=== PATIENT | male | born 1940 | race Caucasian/White ===

== ENCOUNTER 2019-06-13 15:42 | Inpatient (IN) | payer OTHER ==
[~2019-06-13] VITALS: Ht 175.3 cm; Wt 104.0 kg
[~2019-06-13 15:42] MED LIST: CARB25TA3 PO; FURO1TAB31 PO; GABA100C9 PO; POTA1TAB61 PO; PRAM0.252 PO; TAMS0.4C36 PO
[2019-06-13] MEDS ORDERED: FUROSEMIDE 40 MG/4 ML VIAL IV ONE (16:00)
[2019-06-13 16:43] LABS: Eosinophils # (auto) 0 10 ^3/uL (0-0.8); Hemoglobin 12.3 g/dL (13.5-17.5); Lymphocytes # (auto) 0.9 10 ^3/uL (0.4-5.4); Lymphocytes % (auto) 6.5 % (10.0-50.0); Mean Corpuscular Hemoglobin 25.1 pg (28.0-32.0); Mean Corpuscular Hgb Conc. 31.6 g/dL (32.0-36.0); Monocytes # (auto) 0.4 10 ^3/uL (0-1.3)
[2019-06-13 16:45] LABS: Basophils # (auto) 0 10 ^3/uL (0-0.2); Eosinophils % (auto) 0.3 % (0.0-7.0); Hematocrit 38.9 % (41.0-53.0); Mean Corpuscular Volume 79.5 fL (80.0-100.0); Monocytes % (auto) 3.4 % (0.0-12.0); Neutrophils # (auto) 11.7 10 ^3/uL (1.6-8.6); Neutrophils % (auto) 89.8 % (37.0-80.0); Platelet Count (auto) 214 10^3/uL (140-450); Red Cell Distribution Width 16.7 % (11.8-14.3)
[2019-06-13 16:53] LABS: Anion Gap 5 (5-15); BUN/Creatinine Ratio 30.2; Blood Urea Nitrogen 32 mg/dL (7-18); Calcium 8.7 mg/dL (8.5-10.1); Carbon Dioxide 32 mmol/L (21-32); Chloride 101 mmol/L (98-107); GFR African American 86 mL/min; GFR Non-African American 71 mL/min; Glucose 191 mg/dL (74-106); Magnesium 2.1 mg/dL (1.6-2.6); Sodium 138 mmol/L (136-145)
[2019-06-13 16:59] LABS: Alanine Aminotransferase 20 U/L (16-61); Alkaline Phosphatase 103 U/L (45-117); Aspartate Aminotransferase 22 U/L (15-37); Bilirubin, Total 0.5 mg/dL (0.2-1.0); Total Protein 7.2 g/dL (6.4-8.2)
[2019-06-13 17:13] LABS: Urine WBC None Seen /hpf (0 - 3)
[2019-06-13 17:43] LABS: Urine Bacteria FEW /hpf (None Seen); Urine Blood Negative /uL (Negative); Urine Specific Gravity 1.009 (1.001-1.035)
[2019-06-13] MEDS ORDERED: levoFLOXacin 500MG 100 ML IV ONE (18:30)
[2019-06-13] MEDS ORDERED: hydrALAZINE HCL 20 MG/ML VL IV PRN (20:00)
[2019-06-13] MEDS ORDERED: MORPHINE SULF INJ 2 MG/ML SYRINGE 1ML IV PRN (20:00)
[2019-06-13] MEDS ORDERED: NITROGLYCERIN 0.4 MG SL TAB SL PRN (20:00)
[2019-06-13 22:00] VITALS: BP 132/64
--- NOTE | 2019-06-13 22:00 | NUR ---
Telemetry admit from ER ESTIVEN GEIGER admitted to Telemetry unit after SBAR received. Patient oriented to DARIANA CARNES, RN primary RN, unit, room, bed, and unit policies regarding patient care and visiting hours. Patient now on continuous telemetry monitoring, tele box # 31 and telemetry reading on arrival to unit is Sinus tachycardia 100bpm. Patient placed on bedside oxygen, weighed by bedscale and encouraged to call if they need something. All questions and concerns addressed, patient verbalized understanding.
--- NOTE | 2019-06-13 22:40 | NUR ---
wound photos/biopsy patient has a bandaid on his right eyebrow/ forehead per patient he had biopsy done. wound care photos taken for reference
[2019-06-13] MEDS: CARVEDILOL 3.125 MG TAB PO SCH (22:48)
[2019-06-13] MEDS: GABAPENTIN 100 MG CAP PO SCH (22:48)
[2019-06-13] MEDS: CARBIDOPA W LEVODOPA 25/100mg TABLET PO SCH (22:48)
--- NOTE | 2019-06-13 23:38 | NUR ---
patient heart rate went above 100 bpm. patient is Being assisted to the restroom. patient had a BM.
[2019-06-13] MEDS ORDERED: CARV3.1240 PO (23:51)
[2019-06-13] MEDS ORDERED: ROPI2TAB4 PO (23:55)
[2019-06-13] MEDS ORDERED: TRAM50TA2 PO (23:55)
[2019-06-13] MEDS ORDERED: METO2.5T11 PO (23:55)
--- NOTE | 2019-06-14 01:10 | NUR ---
patient assisted to use the restroom.
[2019-06-14 04:51] VITALS: BP 124/69
[2019-06-14] MEDS: FUROSEMIDE 100 MG/10ML VIAL IV SCH ×2 (05:40→18:19)
[2019-06-14] MEDS: GABAPENTIN 100 MG CAP PO SCH ×3 (05:40→21:39)
[2019-06-14] MEDS: SPIRONOLACTONE 25 MG TAB PO SCH ×2 (05:41→18:19)
[2019-06-14 05:59] LABS: Albumin 3.1 g/dL (3.4-5.0); Calcium 8.8 mg/dL (8.5-10.1); INR 1.11 (0.9-1.15); Partial Thromboplastin Time 28.2 sec (23.64-32.05); Potassium 3.5 mmol/L (3.5-5.1)
[2019-06-14 06:02] LABS: BUN/Creatinine Ratio 26.3; Bilirubin, Total 0.7 mg/dL (0.2-1.0)
--- NOTE | 2019-06-14 07:35 | NUR ---
REPORT GIVEN TO DAYSHIFT RN PATIENT DENIES SOB DISTRESS OR PAIN
--- NOTE | 2019-06-14 08:00 | NUR ---
ASSUMED CARE. PLEASANT, VERBALLY APPROPRIATE. STATES HE DID NOT GET MUCH SLEEP LAST NIGHT. REPORTS HE IS ONLY ABLE TO SLEEP SITTING UP. TOLERATES BRP. DEMONSTRATES STEADY ON HIS FEET.
[2019-06-14] MEDS ORDERED: cefTRIAXone 1GM/50ML D5W 50 ML IV SCH (09:00)
--- NOTE | 2019-06-14 09:00 | NUR ---
BEDSIDE ECHO COMPLETED.
[2019-06-14 09:25] VITALS: BP 114/64
--- NOTE | 2019-06-14 09:30 | NUR ---
REPORTS HAVING DIARRHEA. BSC PROVIDED.
[2019-06-14] MEDS ORDERED: AZITHROMYCIN 250 MG TAB PO SCH (10:00)
[2019-06-14] MEDS: ENOXAPARIN SOD 40 MG/0.4 ML SYRINGE SC SCH (10:35)
[2019-06-14] MEDS: CARVEDILOL 3.125 MG TAB PO SCH ×2 (10:35→21:40)
[2019-06-14] MEDS: CARBIDOPA W LEVODOPA 25/100mg TABLET PO SCH ×2 (10:36→21:39)
[2019-06-14 12:40] VITALS: BP 129/62
[2019-06-14 17:04] VITALS: BP 127/54
[2019-06-14] MEDS: PRAMIPEXOLE DIHYDROCHLORIDE MO 0.25 MG TAB PO SCH (18:20)
[2019-06-14] MEDS: TAMSULOSIN HYDROCHLORIDE 0.4 MG CAP PO SCH (18:20)
--- NOTE | 2019-06-14 19:40 | NUR ---
Opening Shift Note Assumed care of patient, awake and alert. No S/S of distress/SOB or pain. Instructed on POC and to call for assist PRN, will continue to monitor for changes Q1hr and PRN. bed in low position call light within reach.
--- NOTE | 2019-06-14 19:49 | NUR ---
C/O LOOSE JESSICA HAS RESOLVED. HOSPITALIST ROUNDED. INSTRUCTS TO LEAVE OFF O2 WITH PLANS FOR DC IN THE AM. TOLERATES EACH MEAL WELL. RESPIRATIONS EVEN UNLABORED. REPORTS RESPIRATIONS NOW EASY AND FEELING MUCH BETTER.
[2019-06-14 22:00] VITALS: BP 129/68
[2019-06-15] MEDS: GABAPENTIN 100 MG CAP PO SCH ×2 (05:31→16:00)
[2019-06-15] MEDS: SPIRONOLACTONE 25 MG TAB PO SCH ×2 (05:31→18:53)
[2019-06-15] MEDS: FUROSEMIDE 100 MG/10ML VIAL IV SCH (05:31)
[2019-06-15 05:41] VITALS: BP 133/63
[2019-06-15 05:59] LABS: Basophils # (auto) 0.1 10 ^3/uL (0-0.2); Basophils % (auto) 0.5 % (0.0-2.0); Eosinophils # (auto) 0 10 ^3/uL (0-0.8); Eosinophils % (auto) 0.4 % (0.0-7.0); Hematocrit 36.9 % (41.0-53.0); Hemoglobin 11.8 g/dL (13.5-17.5); Lymphocytes # (auto) 1.1 10 ^3/uL (0.4-5.4); Lymphocytes % (auto) 9.3 % (10.0-50.0); Mean Corpuscular Hemoglobin 25.5 pg (28.0-32.0); Mean Corpuscular Volume 79.6 fL (80.0-100.0); Monocytes # (auto) 0.6 10 ^3/uL (0-1.3); Monocytes % (auto) 4.8 % (0.0-12.0); Neutrophils # (auto) 10.4 10 ^3/uL (1.6-8.6); Platelet Count (auto) 203 10^3/uL (140-450); Red Blood Cells 4.63 10^6/uL (4.5-5.90); Red Cell Distribution Width 16.8 % (11.8-14.3); White Blood Cell 12.3 10^3/uL (4.4-10.8)
[2019-06-15 06:24] LABS: BUN/Creatinine Ratio 28.7; Calcium 8.6 mg/dL (8.5-10.1); Potassium 3.2 mmol/L (3.5-5.1)
--- NOTE | 2019-06-15 06:50 | NUR ---
patient rounds patient is in bed sleeping bilateral chest rise and fall rr 17. shows no signs of sob distress or pain. bed in low position and call light within reach
--- NOTE | 2019-06-15 07:31 | NUR ---
REPORT GIVEN TO DAYSHIFT RN. PATIENT DENIES SOB DISTRESS OR PAIN
[2019-06-15 08:59] VITALS: BP 118/46
[2019-06-15] MEDS: ENOXAPARIN SOD 40 MG/0.4 ML SYRINGE SC SCH (10:30)
[2019-06-15] MEDS: CARBIDOPA W LEVODOPA 25/100mg TABLET PO SCH (10:30)
[2019-06-15] MEDS: CARVEDILOL 3.125 MG TAB PO SCH (10:30)
[2019-06-15] MEDS ORDERED: levoFLOXacin 500 MG TAB PO SCH (11:30)
[2019-06-15] MEDS: POTASSIUM CHL 20MEQ/100ML 100 ML IV SCH ×2 (11:30→18:52)
[2019-06-15] MEDS ORDERED: POTASSIUM CHL 20 Meq TABLET PO ONE (11:30)
--- NOTE | 2019-06-15 12:00 | NUR ---
D/C Planning Regarding social service for possible home oxygen. Informed OMAR Sutherland under patient vital sign it does not look like he is on oxygen. Per OMAR Sutherland she will test patient and will follow up with me.
[2019-06-15 13:00] VITALS: BP 119/56
--- NOTE | 2019-06-15 13:00 | NUR ---
DR. EMILY TERRELL. STATES OK TO REPLACE POTASSIUM WITH PO FOR VALUE OF 3.2. HE STATES OK WITH DC HOME ON LASIX AND POTASSIUM PO. TO F/U WITH HIM OUT PT.
--- NOTE | 2019-06-15 13:31 | NUR ---
TAKEN IN 100% OF EACH MEAL AND TOLERATES. DEMONSTRATES ABILITY TO AMBULATE 60 FEET WITHOUT SOB AND O2 SAT REMAINS 92% TO 94% WHILE DOING SO. HE HAS SHAVEN HIS FACE THIS AM AND IS BRUSHING HIS TEETH NOW. ASKING WHEN YOU WILL BE DISCHARGED.
--- NOTE | 2019-06-15 13:50 | NUR ---
Assessment Patient is a 79-year-old male who is alert and oriented. Prior to admission patient live home with his Angela and functioned independently. Patient informed me he can care for her own ADLs. Patient informed me he has a walker with seat and cane. Per patient he will return home to his prior living arrangements post discharge and his son will transport him home. Advised patient there is a Social Service consult for home oxygen. Informed patient I will have Nurse check if he needs oxygen. Informed patient he has the right to participate in all discharge planning. Patient verbalized understanding and agrees to discharge plan. Advised Nurse order is not completed and to please check if patient qualifies for home O2. Per OMAR Magallon patient is ambulating 60 feet without SOB and O2 SAT REMAINS 92% TO 94% while doing so therefore, he is not in need of home O2. Addendum: 06/15/19 at 1351 by MARILUZ ETIENNE Amended: Links added.
[2019-06-15 13:51] VITALS: BP 118/46
[2019-06-15] MEDS ORDERED: SPIR25TA88 PO (16:39)
[2019-06-15] MEDS ORDERED: LEVO-28 PO (16:39)
[2019-06-15 16:44] VITALS: BP 122/68
[2019-06-15] MEDS ORDERED: POTASSIUM CHL 20MEQ/100ML 100 ML IV ONE (18:22)
[2019-06-15] MEDS: TAMSULOSIN HYDROCHLORIDE 0.4 MG CAP PO SCH (18:53)
[2019-06-15] MEDS: PRAMIPEXOLE DIHYDROCHLORIDE MO 0.25 MG TAB PO SCH (18:54)
--- NOTE | 2019-06-15 19:25 | NUR ---
Opening Shift Note Assumed care of patient, awake and alert x4. No S/S of distress/SOB or pain. Instructed on POC and to call for assist PRN. All questions and concerns answered. Patient is going to call his son for a ride to be picked up. Will continue to monitor.
--- NOTE | 2019-06-15 20:20 | NUR ---
Discharge wound photo taken of the right forehead for reference.
--- NOTE | 2019-06-15 20:30 | NUR ---
Discharge instructions given as ordered. Encourage to follow up with PMD and Dr. Serrano as instructed. All questions and concerns addressed. Patient verbalized understanding. Medication reconciliation form completed and copy given to patient. IV removed with catheter intact, pressure dressing applied. Telemetry unit returned to ICU. Patient taken to vehicle via wheelchair with all personal belongings, accompanied by staff. No distress noted at time of departure.
[2019-06-16] MEDS ORDERED: POTASSIUM CHL 20 Meq TABLET PO SCH (10:00)
[2019-06-16] MEDS ORDERED: FUROSEMIDE 20 MG TAB PO SCH (10:00)
== END 2019-06-15 20:30 | disposition home or self-care (01) | DRG 291 ==
LOC: ER 15:42 → TELE 15:43 → TELE-CENTR 22:00
PROVIDERS: ADMIT Nurse Practitioner Acute Care; ATTEND Internal Medicine
DX: I13.0 Hypertensive heart and chronic kidney disease with heart failure and stage 1 through stage 4 chronic kidney disease, or unspecified chronic kidney disease (principal); J18.9 Pneumonia, unspecified organism; I50.43 Acute on chronic combined systolic (congestive) and diastolic (congestive) heart failure; E44.0 Moderate protein-calorie malnutrition; N17.9 Acute kidney failure, unspecified; I45.2 Bifascicular block; R06.03 Acute respiratory distress; D72.829 Elevated white blood cell count, unspecified; R00.2 Palpitations; G20 Parkinson's disease; G25.81 Restless legs syndrome; N18.3 Chronic kidney disease, stage 3 (moderate); E87.6 Hypokalemia; N40.0 Benign prostatic hyperplasia without lower urinary tract symptoms; I08.1 Rheumatic disorders of both mitral and tricuspid valves; I44.0 Atrioventricular block, first degree; I25.10 Atherosclerotic heart disease of native coronary artery without angina pectoris; Z79.899 Other long term (current) drug therapy; Z87.442 Personal history of urinary calculi; Z68.33 Body mass index [BMI] 33.0-33.9, adult
CPT/HCPCS: 36415; 71045; 80048; 80053; 81001; 82962; 83036; 83605; 83735; 83880; 84484; 85025; 85379; 85610; 85730; 87040; 87804; 93005; 93306; G0378; J0696; J1956; J3480

== ENCOUNTER 2019-06-19 17:08 | Inpatient (IN) | payer OTHER, SELFPAY ==
[~2019-06-19] VITALS: Ht 154.9 cm; Wt 103.0 kg
[~2019-06-19 17:08] MED LIST changes: +CARV3.1240 PO; +LEVO-28 PO; +METO2.5T11 PO; +ROPI2TAB4 PO; +SPIR25TA88 PO; +TRAM50TA2 PO
[2019-06-19 18:07] LABS: Basophils # (auto) 0.1 10 ^3/uL (0-0.2); Eosinophils # (auto) 0 10 ^3/uL (0-0.8); Eosinophils % (auto) 0.2 % (0.0-7.0); Hemoglobin 13.5 g/dL (13.5-17.5); Monocytes # (auto) 0.4 10 ^3/uL (0-1.3); Neutrophils # (auto) 13.9 10 ^3/uL (1.6-8.6)
[2019-06-19 18:09] LABS: Basophils % (auto) 0.7 % (0.0-2.0); Hematocrit 41.8 % (41.0-53.0); Lymphocytes # (auto) 0.9 10 ^3/uL (0.4-5.4); Lymphocytes % (auto) 5.6 % (10.0-50.0); Mean Corpuscular Hemoglobin 25.8 pg (28.0-32.0); Mean Corpuscular Hgb Conc. 32.4 g/dL (32.0-36.0); Mean Corpuscular Volume 79.5 fL (80.0-100.0); Monocytes % (auto) 2.5 % (0.0-12.0); Nucleated Red Blood Cells % 0.1 %; Platelet Count (auto) 222 10^3/uL (140-450); Red Blood Cells 5.26 10^6/uL (4.5-5.90); White Blood Cell 15.3 10^3/uL (4.4-10.8)
[2019-06-19 18:21] LABS: Alanine Aminotransferase 15 U/L (16-61); Albumin 3.7 g/dL (3.4-5.0); Anion Gap 6 (5-15); Aspartate Aminotransferase 40 U/L (15-37); BUN/Creatinine Ratio 28.6; Blood Urea Nitrogen 55 mg/dL (7-18); Carbon Dioxide 32 mmol/L (21-32); Chloride 95 mmol/L (98-107); GFR African American 44 mL/min; GFR Non-African American 36 mL/min; Glucose 174 mg/dL (74-106); Potassium 3.3 mmol/L (3.5-5.1); Sodium 133 mmol/L (136-145)
[2019-06-19 18:24] LABS: INR 1.13 (0.9-1.15); Partial Thromboplastin Time 28.3 sec (23.64-32.05)
[2019-06-19 18:28] LABS: Alkaline Phosphatase 116 U/L (45-117); Bilirubin, Total 0.9 mg/dL (0.2-1.0)
[2019-06-19 21:45] LABS: Urine Bacteria NONE SEEN /hpf (None Seen); Urine Blood Negative /uL (Negative); Urine Hyaline Cast MANY /lpf (0 - 2); Urine Specific Gravity 1.011 (1.001-1.035); Urine WBC 1 /hpf (0 - 3)
[2019-06-20] MEDS ORDERED: AZITHROMYCIN 500MG/ 250ML 250 ML IV ONE
[2019-06-20] MEDS ORDERED: TEMAZEPAM 15 MG CAP PO PRN
[2019-06-20] MEDS ORDERED: ACETAMINOPHEN 325 MG TAB PO PRN
[2019-06-20] MEDS ORDERED: HYDROcodone-ACET 5/325MG TAB PO PRN
[2019-06-20] MEDS ORDERED: SODIUM CHLORIDE 0.9% 500 ML IV ONE
[2019-06-20] MEDS ORDERED: ONDANSETRON HCL 4 MG/2 ML VIAL IV PRN
[2019-06-20] MEDS ORDERED: POTASSIUM CHL 20 Meq TABLET PO ONE ×2 (00:15→18:00)
[2019-06-20 02:50] VITALS: BP 144/76
--- NOTE | 2019-06-20 04:19 | NUR ---
MS admit from ER ESTIVEN GEIGER admitted to tele/MS after SBAR received. Patient oriented to Noemy Mahmood RN primary RN, unit, room, bed, and unit policies regarding patient care and visiting hours. Patient weighed by bedscale and encouraged to call if they need something. All questions and concerns addressed, patient verbalized understanding. Bed is in lowest locked position with bed rails up x2 and call light is within reach of the patient.
[2019-06-20 05:00] VITALS: BP 133/66
[2019-06-20] MEDS ORDERED: ALBUTEROL SULF HFA 90MCG INH 200DOSE IN SCH ×2 (06:00)
[2019-06-20] MEDS ORDERED: FUROSEMIDE 20 MG TAB PO SCH (06:00)
[2019-06-20] MEDS: CARBIDOPA W LEVODOPA 25/100mg TABLET PO SCH ×3 (06:23→22:45)
[2019-06-20] MEDS: GABAPENTIN 100 MG CAP PO SCH ×3 (06:25→22:45)
--- NOTE | 2019-06-20 07:00 | NUR ---
PAGED RT: PAGED RT FOR INHALER TREATMENT AND NEED TO HAVE PATIENT ON CONTINUOUS PULSE OX.
--- NOTE | 2019-06-20 07:20 | NUR ---
Respiratory note: PT ASSESSED FOR MDI TX. HR 76, RR 18, POX 98% ON 2L NC, BS ARE CLR/DIM. PT STATES NO SOB OR DISTRESS AT THIS TIME. PT WAS NOTIFY TO HAVE RN PAGE RT FOR NEEDED TX.
--- NOTE | 2019-06-20 07:31 | NUR ---
SPOKE WITH RT: RESPIRATORY THERAPIST MADE AWARE THAT PATIENT NEEDS CONTINUOUS PULSE OX AND ALBUTEROL INHALER MED. STATED THAT SHE WILL GET TO IT FOR THE PATIENT. NOTIFIED DAY SHIFT RN.
[2019-06-20 08:00] VITALS: BP_SYST 133; BP_SYST 139; BP_DIAS 57; BP_DIAS 66
--- NOTE | 2019-06-20 08:00 | NUR ---
OPENING SHIFT NOTE ASSUMED CARE OF PATIENT AWAKE AND ALERT. NO S/S OF DISTRESS NOTED OR COMPLAINTS OF PAIN. PATIENT CONNECTED TO CONTINUOUS PULSE OX SATTING AT 96% ON 2L NC. PATIENT STATES HE FEELS MUCH BETTER AND NO LONGER SOB WITH O2 THERAPY. PATIENT UPDATED ON POC FOR THE DAY AND ALL QUESTIONS ANSWERED. BED IS IN LOWEST, LOCKED POSITION WITH SIDE RAILS UP X2 AND CALL LIGHT WITHIN REACH. WILL CONTINUE TO MONITOR Q1H AND PRN.
[2019-06-20] MEDS ORDERED: ERGOCALCIFEROL 50,000 UNIT(1.25MG) CAP PO SCH (09:00)
[2019-06-20] MEDS: CARVEDILOL 3.125 MG TAB PO SCH ×2 (09:48→22:45)
[2019-06-20] MEDS: ASCORBIC ACID 500 MG TAB PO SCH (09:49)
[2019-06-20] MEDS ORDERED: ZINC SULFATE 220mg CAP or TAB PO SCH (10:00)
[2019-06-20 13:53] LABS: Basophils # (auto) 0 10 ^3/uL (0-0.2); Basophils % (auto) 0.1 % (0.0-2.0); Eosinophils # (auto) 0 10 ^3/uL (0-0.8); Eosinophils % (auto) 0.1 % (0.0-7.0); Hemoglobin 13.1 g/dL (13.5-17.5); Lymphocytes # (auto) 0.9 10 ^3/uL (0.4-5.4); Lymphocytes % (auto) 5.8 % (10.0-50.0); Mean Corpuscular Volume 78.9 fL (80.0-100.0); Monocytes # (auto) 0.6 10 ^3/uL (0-1.3)
[2019-06-20 13:57] LABS: Hematocrit 39.5 % (41.0-53.0); Mean Corpuscular Hemoglobin 26.1 pg (28.0-32.0); Mean Corpuscular Hgb Conc. 33.1 g/dL (32.0-36.0); Monocytes % (auto) 3.9 % (0.0-12.0); Neutrophils # (auto) 14.3 10 ^3/uL (1.6-8.6); Neutrophils % (auto) 90.1 % (37.0-80.0); Platelet Count (auto) 229 10^3/uL (140-450); Red Blood Cells 5.01 10^6/uL (4.5-5.90); Red Cell Distribution Width 16.4 % (11.8-14.3); White Blood Cell 15.9 10^3/uL (4.4-10.8)
--- NOTE | 2019-06-20 14:00 | NUR ---
AT BEDSIDE DR DIAZ AT BEDSIDE TO EVALUATE PATIENT.
[2019-06-20 14:07] LABS: BUN/Creatinine Ratio 33.1; Calcium 9.1 mg/dL (8.5-10.1); Potassium 3.2 mmol/L (3.5-5.1)
--- NOTE | 2019-06-20 14:30 | NUR ---
LOOSE STOOLS PATIENT HAS BEEN HAVING MULTIPLE BOUTS OF FOUL SMELLING MUCOID BOWEL MOVEMENTS. HE IS ALSO COMPLAINING OF CRAMPING. CDIFF SAMPLE COLLECTED AND SENT TO LAB PER PROTOCOL.
--- NOTE | 2019-06-20 15:07 | NUR ---
PAGED DR Yair BRYANT PAGED REGARDING POTASSIUM LEVEL AND CDIFF SAMPLE. AWAITING CALL BACK.
--- NOTE | 2019-06-20 15:21 | NUR ---
RECEIVED CALL BACK RECEIVED CALL FROM Bela BRYANT. NEW ORDERS RECEIVED, WILL CARRY OUT AND CONTINUE CARE.
--- NOTE | 2019-06-20 16:30 | NUR ---
AT BEDSIDE DR BROWN AT BEDSIDE CONSULTING WITH PATIENT.
--- NOTE | 2019-06-20 17:10 | NUR ---
PHARMACY RECEIVED CALL FROM PHARMACY STATING THEY ARE PUTTING A HOLD ON ORDERED ZITHROMAX D/T PROLONGED QT INTERVAL. THEY RECOMMEND MD ORDERS DOXYCYCLINE OR ZOSYN. WILL ENDORSE MESSAGE.
[2019-06-20] MEDS ORDERED: TAMSULOSIN HYDROCHLORIDE 0.4 MG CAP PO SCH (18:00)
[2019-06-20 18:21] VITALS: BP 116/80
[2019-06-21] MEDS ORDERED: AZITHROMYCIN 500MG/ 250ML 250 ML IV SCH
[2019-06-21] MEDS: GABAPENTIN 100 MG CAP PO SCH ×2 (05:30→15:46)
[2019-06-21] MEDS: CARBIDOPA W LEVODOPA 25/100mg TABLET PO SCH ×2 (05:30→15:47)
[2019-06-21 09:00] VITALS: BP 128/67
[2019-06-21] MEDS: CARVEDILOL 3.125 MG TAB PO SCH (10:56)
[2019-06-21] MEDS: ASCORBIC ACID 500 MG TAB PO SCH (11:13)
[2019-06-21] MEDS ORDERED: DOXYCYCLINE 100 MG TAB/CAP PO SCH (12:30)
--- NOTE | 2019-06-21 14:33 | NUR ---
Dr. Serrano patient cleared for discharge per Dr. Serrano
[2019-06-21 15:07] LABS: Basophils # (auto) 0 10 ^3/uL (0-0.2); Lymphocytes # (auto) 0.9 10 ^3/uL (0.4-5.4); Monocytes # (auto) 0.4 10 ^3/uL (0-1.3)
[2019-06-21 15:09] LABS: Basophils % (auto) 0.2 % (0.0-2.0); Eosinophils # (auto) 0.1 10 ^3/uL (0-0.8); Eosinophils % (auto) 0.4 % (0.0-7.0); Hematocrit 42.8 % (41.0-53.0); Hemoglobin 13.4 g/dL (13.5-17.5); Lymphocytes % (auto) 7.2 % (10.0-50.0); Mean Corpuscular Hgb Conc. 31.4 g/dL (32.0-36.0); Mean Corpuscular Volume 79.6 fL (80.0-100.0); Monocytes % (auto) 3.3 % (0.0-12.0); Neutrophils # (auto) 11.5 10 ^3/uL (1.6-8.6); Neutrophils % (auto) 88.9 % (37.0-80.0); Nucleated Red Blood Cells % 0.1 %; Platelet Count (auto) 191 10^3/uL (140-450); Red Blood Cells 5.38 10^6/uL (4.5-5.90); Red Cell Distribution Width 16.9 % (11.8-14.3); White Blood Cell 12.9 10^3/uL (4.4-10.8)
[2019-06-21 15:25] LABS: BUN/Creatinine Ratio 38.5; Calcium 8.9 mg/dL (8.5-10.1); Potassium 3.1 mmol/L (3.5-5.1)
[2019-06-21] MEDS ORDERED: POTASSIUM EFFERVESENT TAB 25 MEQ PO ONE (15:30)
--- NOTE | 2019-06-21 15:42 | NUR ---
Dr. Mendoza cleared patient for discharge.
[2019-06-21] MEDS ORDERED: ALBUAER3 IN (15:51)
[2019-06-21] MEDS ORDERED: IPRIH IN (15:51)
[2019-06-21] MEDS ORDERED: DOXY-346 PO (15:51)
[2019-06-21] MEDS ORDERED: HYDR200T36 PO (15:51)
[2019-06-21 16:36] VITALS: BP 126/67
--- NOTE | 2019-06-21 16:56 | NUR ---
PT EDUCATED ON DISCHARGE INSTRUCTIONS AND ON ISOLATION PRECAUTIONS. PT EDUCATED BY OMAR SOLANO AND DR.T. BRYANT. PT VERBALIZED UNDERSTANDING
--- NOTE | 2019-06-21 17:13 | NUR ---
Discharge instructions given as ordered. Encourage to follow up with PMD as instructed. All questions and concerns addressed. Patient verbalized understanding. Medication reconciliation form completed and copy given to patient. Home medications held in Pharmacy returned to patient, and needed vaccines given. IV removed with catheter intact, pressure dressing applied Telemetry unit returned to ICU. Patient taken to vehicle via wheelchair with all personal belongings, accompanied by staff. No distress noted at time of departure.
--- NOTE | 2019-06-22 13:36 | NUR ---
D/C Planning Per consult home health safety evaluation. Faxed clinical information to [facility]. Per Lynette Mabry they will see patient D/C Planning Per consult for home health safety evaluation. Faxed clinical information to [facility]. Per Lynette Mabry Ph:) they where previously seeing patient and will resume service within 24-48hrs upon d/c day. Notify [facility] Wilkins with [facility].
== END 2019-06-21 19:04 | disposition home or self-care (01) | DRG 189 ==
LOC: ER 17:10 → OVERFLOW 17:11 → EAST 06-20 03:10
PROVIDERS: ADMIT Nurse Practitioner; ATTEND Internal Medicine
DX: J96.01 Acute respiratory failure with hypoxia (principal); N17.0 Acute kidney failure with tubular necrosis; I50.32 Chronic diastolic (congestive) heart failure; J98.11 Atelectasis; J20.9 Acute bronchitis, unspecified; E87.6 Hypokalemia; D72.829 Elevated white blood cell count, unspecified; I11.0 Hypertensive heart disease with heart failure; G20 Parkinson's disease; N40.0 Benign prostatic hyperplasia without lower urinary tract symptoms; E66.01 Morbid (severe) obesity due to excess calories; G62.9 Polyneuropathy, unspecified; Z90.49 Acquired absence of other specified parts of digestive tract; Z90.89 Acquired absence of other organs; Z98.49 Cataract extraction status, unspecified eye; Z83.3 Family history of diabetes mellitus; Z82.49 Family history of ischemic heart disease and other diseases of the circulatory system; Z80.1 Family history of malignant neoplasm of trachea, bronchus and lung; Z81.1 Family history of alcohol abuse and dependence; Z03.818 Encounter for observation for suspected exposure to other biological agents ruled out
CPT/HCPCS: 36415; 71045; 80048; 80053; 81001; 82728; 83735; 83880; 84484; 85025; 85379; 85610; 85652; 85730; 87040; 87070; 87081; 87493; 87804; 87880; 93005; 93970; G0378

== ENCOUNTER 2020-01-06 13:40 | Inpatient (IN) | payer OTHER, SELFPAY ==
[~2020-01-06] VITALS: Ht 190.5 cm; Wt 91.5 kg
[~2020-01-06 13:40] MED LIST changes: +ALBUAER3 IN; +DOXY-346 PO; +HYDR200T36 PO; +IPRIH IN; -LEVO-28 PO; -METO2.5T11 PO
[2020-01-06 14:43] LABS: Albumin 3.4 g/dL (3.4-5.0); Amylase 40 U/L (25-115); Anion Gap 4 (5-15); Blood Urea Nitrogen 29 mg/dL (7-18); Calcium 8.9 mg/dL (8.5-10.1); Carbon Dioxide 37 mmol/L (21-32); Chloride 99 mmol/L (98-107); Glucose 113 mg/dL (74-106); Lipase 183 U/L (73-393); Magnesium 2.5 mg/dL (1.6-2.6); Potassium 3.8 mmol/L (3.5-5.1); Sodium 140 mmol/L (136-145)
[2020-01-06 14:45] LABS: Eosinophils # (auto) 0 10 ^3/uL (0-0.8); Hematocrit 37.7 % (41.0-53.0); Hemoglobin 11.9 g/dL (13.5-17.5); Mean Corpuscular Hgb Conc. 31.4 g/dL (32.0-36.0); Monocytes # (auto) 0.6 10 ^3/uL (0-1.3); Neutrophils # (auto) 14.9 10 ^3/uL (1.6-8.6)
[2020-01-06 14:46] LABS: Basophils # (auto) 0.1 10 ^3/uL (0-0.2); Basophils % (auto) 0.4 % (0.0-2.0); Eosinophils % (auto) 0.1 % (0.0-7.0); Lymphocytes # (auto) 0.8 10 ^3/uL (0.4-5.4); Lymphocytes % (auto) 4.6 % (10.0-50.0); Mean Corpuscular Hemoglobin 25.6 pg (28.0-32.0); Mean Corpuscular Volume 81.4 fL (80.0-100.0); Monocytes % (auto) 3.6 % (0.0-12.0); Neutrophils % (auto) 91.3 % (37.0-80.0); Platelet Count (auto) 199 10^3/uL (140-450); Red Blood Cells 4.64 10^6/uL (4.5-5.90); Red Cell Distribution Width 15.2 % (11.8-14.3); White Blood Cell 16.4 10^3/uL (4.4-10.8)
[2020-01-06 14:50] LABS: Alanine Aminotransferase < 6 U/L (16-61); Alkaline Phosphatase 98 U/L (45-117); Aspartate Aminotransferase 8 U/L (15-37); GFR African American 71 mL/min; GFR Non-African American 59 mL/min; Total Protein 7.2 g/dL (6.4-8.2)
[2020-01-06 15:06] LABS: Urine Bacteria NONE SEEN /hpf (None Seen); Urine Blood Negative /uL (Negative); Urine Hyaline Cast MOD /lpf (0 - 2); Urine Mucus FEW (None Seen); Urine Specific Gravity 1.008 (1.001-1.035); Urine WBC <1 /hpf (0 - 3)
[2020-01-06] MEDS ORDERED: cefTRIAXone 1GM/50ML D5W 50 ML IV ONE (16:30)
[2020-01-06] MEDS ORDERED: metroNIDAZOLE 500MG/100ML 100 ML IV ONE (16:30)
[2020-01-06] MEDS ORDERED: MORPHINE SULF INJ 2 MG/ML SYRINGE 1ML IV PRN ×2 (19:15)
[2020-01-06] MEDS ORDERED: NITROGLYCERIN 0.4 MG SL TAB SL PRN (19:15)
[2020-01-06] MEDS ORDERED: ONDANSETRON HCL 4 MG/2 ML VIAL IV PRN (19:15)
[2020-01-06] MEDS ORDERED: ACETAMINOPHEN 500 MG TAB PO PRN (19:15)
[2020-01-06] MEDS: FUROSEMIDE 40 MG TAB PO SCH (20:36)
[2020-01-06] MEDS ORDERED: CARBIDOPA W LEVODOPA 25/100mg TABLET PO SCH (22:00)
[2020-01-06] MEDS: metroNIDAZOLE 500MG/100ML 100 ML IV SCH (22:00)
[2020-01-06] MEDS ORDERED: [UNRECOGNIZED DRUG - REMARK] OP SCH (22:00)
[2020-01-06] MEDS: CARVEDILOL 3.125 MG TAB PO SCH (23:00)
[2020-01-06] MEDS: GABAPENTIN 100 MG CAP PO SCH (23:00)
[2020-01-06] MEDS ORDERED: ALLO100T PO (23:23)
[2020-01-06 23:41] VITALS: BP 134/62
[2020-01-07 05:00] VITALS: BP 132/65
[2020-01-07] MEDS: metroNIDAZOLE 500MG/100ML 100 ML IV SCH ×3 (05:40→22:57)
[2020-01-07] MEDS: SPIRONOLACTONE 25 MG TAB PO SCH ×2 (06:04→17:28)
[2020-01-07] MEDS: GABAPENTIN 100 MG CAP PO SCH ×3 (06:05→22:57)
[2020-01-07] MEDS: FUROSEMIDE 40 MG TAB PO SCH ×2 (06:05→17:28)
--- NOTE | 2020-01-07 07:30 | NUR ---
Opening Shift Note RECEIVED REPORT FROM NOC RN. Assumed care of patient, awake and alert. PATIENT ON OXYGEN AT 2 LPM VIA NASAL CANNULA WITH no S/S of distress/SOB or pain. BED IN LOWEST, LOCKED POSITION WITH SIDERAILS UP x2 AND CALL LIGHT WITHIN REACH. Instructed on POC and to call for assist PRN, will continue to monitor for changes Q1hr and PRN.
[2020-01-07 08:57] VITALS: BP 114/55
[2020-01-07] MEDS: cefTRIAXone 1GM/50ML D5W 50 ML IV SCH (09:17)
[2020-01-07] MEDS: PANTOPRAZOLE 40 MG/10 ML VIAL INJ IV SCH (10:01)
[2020-01-07] MEDS: CARVEDILOL 3.125 MG TAB PO SCH ×2 (10:01→22:57)
--- NOTE | 2020-01-07 11:47 | NUR ---
DR. SALINAS AT BEDSIDE.
[2020-01-07 12:50] VITALS: BP 121/57
[2020-01-07] MEDS: CARBIDOPA W LEVODOPA 25/250mg TABLET PO SCH ×2 (14:04→22:56)
[2020-01-07 16:35] VITALS: BP 143/67
[2020-01-07] MEDS ORDERED: TAMSULOSIN HYDROCHLORIDE 0.4 MG CAP PO SCH (18:00)
[2020-01-07 22:00] VITALS: BP 137/63
[2020-01-08 05:45] VITALS: BP 122/56
[2020-01-08] MEDS: CARBIDOPA W LEVODOPA 25/250mg TABLET PO SCH ×2 (06:03→14:25)
[2020-01-08] MEDS: metroNIDAZOLE 500MG/100ML 100 ML IV SCH ×2 (06:03→14:25)
[2020-01-08] MEDS: FUROSEMIDE 40 MG TAB PO SCH (06:04)
[2020-01-08] MEDS: SPIRONOLACTONE 25 MG TAB PO SCH (06:04)
[2020-01-08] MEDS: GABAPENTIN 100 MG CAP PO SCH ×2 (06:04→14:25)
[2020-01-08 08:33] LABS: Basophils # (auto) 0 10 ^3/uL (0-0.2); Lymphocytes # (auto) 0.6 10 ^3/uL (0.4-5.4); Mean Corpuscular Hemoglobin 25.9 pg (28.0-32.0); Mean Corpuscular Hgb Conc. 31.8 g/dL (32.0-36.0); Mean Corpuscular Volume 81.4 fL (80.0-100.0); Monocytes # (auto) 0.4 10 ^3/uL (0-1.3)
[2020-01-08 08:35] LABS: Basophils % (auto) 0.3 % (0.0-2.0); Eosinophils # (auto) 0.1 10 ^3/uL (0-0.8); Eosinophils % (auto) 0.6 % (0.0-7.0); Hematocrit 36.5 % (41.0-53.0); Hemoglobin 11.6 g/dL (13.5-17.5); Lymphocytes % (auto) 5.9 % (10.0-50.0); Monocytes % (auto) 3.6 % (0.0-12.0); Neutrophils # (auto) 9.9 10 ^3/uL (1.6-8.6); Neutrophils % (auto) 89.6 % (37.0-80.0); Platelet Count (auto) 185 10^3/uL (140-450); Red Blood Cells 4.48 10^6/uL (4.5-5.90); White Blood Cell 11.1 10^3/uL (4.4-10.8)
[2020-01-08 08:55] LABS: Albumin 3.1 g/dL (3.4-5.0); Anion Gap 5 (5-15); Blood Urea Nitrogen 25 mg/dL (7-18); Calcium 8.9 mg/dL (8.5-10.1); Carbon Dioxide 33 mmol/L (21-32); Chloride 99 mmol/L (98-107); Glucose 126 mg/dL (74-106); Potassium 3.1 mmol/L (3.5-5.1); Sodium 137 mmol/L (136-145)
[2020-01-08 08:59] LABS: Alanine Aminotransferase < 6 U/L (16-61); Alkaline Phosphatase 78 U/L (45-117); Aspartate Aminotransferase 10 U/L (15-37); BUN/Creatinine Ratio 26.3; Bilirubin, Total 0.9 mg/dL (0.2-1.0); GFR African American 98 mL/min; GFR Non-African American 81 mL/min; Total Protein 6.7 g/dL (6.4-8.2)
[2020-01-08 09:00] VITALS: BP 125/48
[2020-01-08] MEDS: cefTRIAXone 1GM/50ML D5W 50 ML IV SCH (09:27)
[2020-01-08] MEDS: PANTOPRAZOLE 40 MG/10 ML VIAL INJ IV SCH (09:27)
[2020-01-08] MEDS: CARVEDILOL 3.125 MG TAB PO SCH (09:28)
[2020-01-08] MEDS ORDERED: GADOTERIDOL 279.3mg/mL 20ml Vial IV ONE (10:07)
[2020-01-08] MEDS ORDERED: LACTULOSE 20Gm/30ML SOLN PO PRN (12:45)
[2020-01-08 13:00] VITALS: BP 131/73
[2020-01-08] MEDS ORDERED: CEPH-37 PO (14:00)
[2020-01-08] MEDS ORDERED: METR500T PO (14:00)
[2020-01-08] MEDS ORDERED: IBUP600T27 PO (14:04)
[2020-01-08] MEDS ORDERED: POTASSIUM CHL 20 Meq TABLET PO ONE (14:45)
[2020-01-08 15:09] VITALS: BP 125/48
--- NOTE | 2020-01-08 17:09 | NUR ---
DISCHARGE INSTRUCTIONS PROVIDED TO PT. PT VERBALIZED UNDERSTANDING FOR PRESCRIPTION ORDERS AND FOLLOW UP APPOINTMENT. EDUCATIONAL MATERIAL PROVIDED, ALL QUESTIONS AND CONCERNS ADDRESSED. IV CATHETER DC CATHETER INTACT NO PHLEBITIS. TELE BOX REMOVED AND RETURNED TO TELE DEPT. PT SAFELY ESCORTED OUT OF UNIT VIA WHEELCHAIR.
== END 2020-01-08 17:00 | disposition home or self-care (01) | DRG 392 ==
LOC: ER 13:40 → TELE 13:41 → TELE-CENTR 22:20 → TELE-EAST 01-07 20:43
PROVIDERS: ADMIT Nurse Practitioner Acute Care; ATTEND Hospitalist
DX: K57.32 Diverticulitis of large intestine without perforation or abscess without bleeding (principal); I50.32 Chronic diastolic (congestive) heart failure; K86.2 Cyst of pancreas; D72.829 Elevated white blood cell count, unspecified; N28.89 Other specified disorders of kidney and ureter; H40.9 Unspecified glaucoma; E78.5 Hyperlipidemia, unspecified; I11.0 Hypertensive heart disease with heart failure; K52.9 Noninfective gastroenteritis and colitis, unspecified; G62.9 Polyneuropathy, unspecified; K57.90 Diverticulosis of intestine, part unspecified, without perforation or abscess without bleeding; Q27.39 Arteriovenous malformation, other site; Z80.1 Family history of malignant neoplasm of trachea, bronchus and lung; Z90.49 Acquired absence of other specified parts of digestive tract; Z80.51 Family history of malignant neoplasm of kidney; Z82.49 Family history of ischemic heart disease and other diseases of the circulatory system; Z83.3 Family history of diabetes mellitus; Z79.891 Long term (current) use of opiate analgesic; Z79.01 Long term (current) use of anticoagulants; Z79.899 Other long term (current) drug therapy
CPT/HCPCS: 36415; 74176; 74183; 76775; 80053; 81001; 82150; 83605; 83690; 83735; 83880; 84484; 85025; 87040; 93306; 96365; 96368; C9113; G0378; J0696; J3490

== ENCOUNTER 2021-02-13 09:14 | Emergency (ER) | payer OTHER ==
[~2021-02-13] VITALS: Ht 190.5 cm; Wt 89.4 kg
[~2021-02-13 09:14] MED LIST changes: +ALLO100T PO; +CARB-80 PO; -CARB25TA3 PO; +CEPH-37 PO; -DOXY-346 PO; +IBUP600T27 PO; +METR500T PO; -ROPI2TAB4 PO; +ROPI2TAB6 PO; +SPIR25TA PO; -SPIR25TA88 PO
[2021-02-13 10:12] VITALS: BP 126/82
[2021-02-13 10:41] LABS: Urine Bacteria NONE SEEN /hpf (None Seen); Urine Blood 3+ /uL (Negative); Urine Specific Gravity 1.012 (1.001-1.035); Urine WBC 15 /hpf (0 - 3); Urine WBC Clumps PRESENT /hpf (None Seen)
[2021-02-13 11:15] LABS: Basophils # (auto) 0.1 10 ^3/uL (0-0.2); Basophils % (auto) 0.5 % (0.0-2.0); Eosinophils # (auto) 0 10 ^3/uL (0-0.8); Lymphocytes # (auto) 0.6 10 ^3/uL (0.4-5.4); Monocytes # (auto) 0.4 10 ^3/uL (0-1.3); Neutrophils # (auto) 10.9 10 ^3/uL (1.6-8.6)
[2021-02-13 11:16] LABS: Potassium 4.7 mmol/L (3.5-5.1)
[2021-02-13 11:17] LABS: Eosinophils % (auto) 0.1 % (0.0-7.0); Hematocrit 33.1 % (41.0-53.0); Hemoglobin 10.5 g/dL (13.5-17.5); Lymphocytes % (auto) 5.3 % (10.0-50.0); Mean Corpuscular Hemoglobin 26.1 pg (28.0-32.0); Mean Corpuscular Hgb Conc. 31.8 g/dL (32.0-36.0); Monocytes % (auto) 3.2 % (0.0-12.0); Neutrophils % (auto) 90.9 % (37.0-80.0); Red Blood Cells 4.03 10^6/uL (4.5-5.90); Red Cell Distribution Width 19.3 % (11.8-14.3); White Blood Cell 11.9 10^3/uL (4.4-10.8)
[2021-02-13 11:22] LABS: Albumin 2.8 g/dL (3.4-5.0); BUN/Creatinine Ratio 25.8; Bilirubin, Total 0.6 mg/dL (0.2-1.0); Calcium 8.6 mg/dL (8.5-10.1); Total Protein 6.2 g/dL (6.4-8.2)
[2021-02-13] MEDS ORDERED: cefTRIAXone 1GM/50ML D5W 50 ML IV ONE (12:15)
[2021-02-13] MEDS ORDERED: NITR-87 PO (12:16)
== END 2021-02-13 14:21 | disposition home or self-care (01) ==
LOC: ER 09:14 → EDBD 09:14 → ER 14:21
DX: N21.0 Calculus in bladder (principal); I11.0 Hypertensive heart disease with heart failure; I50.9 Heart failure, unspecified; Z90.49 Acquired absence of other specified parts of digestive tract
CPT/HCPCS: 36415; 74176; 80053; 81001; 83690; 85025; 93005

== ENCOUNTER 2021-08-17 08:18 | Emergency (ER) | payer OTHER ==
[~2021-08-17] VITALS: Ht 190.5 cm; Wt 80.7 kg
[~2021-08-17 08:18] MED LIST changes: +NITR-87 PO
[2021-08-17 08:24] VITALS: BP 125/49
[2021-08-17 10:32] LABS: Urine Bacteria FEW /hpf (None Seen); Urine Blood 2+ /uL (Negative); Urine WBC 5160 /hpf (0 - 3)
== END 2021-08-17 09:13 | disposition left against medical advice (07) ==
LOC: ER 08:18
DX: N39.0 Urinary tract infection, site not specified (principal); Z53.21 Procedure and treatment not carried out due to patient leaving prior to being seen by health care provider
CPT/HCPCS: 81001

== ENCOUNTER 2021-08-27 05:02 | Emergency (ER) | payer OTHER ==
[~2021-08-27] VITALS: Ht 190.5 cm; Wt 76.2 kg
[2021-08-27 07:29] LABS: Urine Bacteria NONE SEEN /hpf (None Seen); Urine Blood TRACE /uL (Negative); Urine Specific Gravity 1.015 (1.001-1.035); Urine WBC 1359 /hpf (0 - 3); Urine WBC Clumps PRESENT /hpf (None Seen)
[2021-08-27] MEDS ORDERED: TAMSULOSIN HYDROCHLORIDE 0.4 MG CAP PO ONE (07:30)
[2021-08-27] MEDS ORDERED: SODIUM CHLORIDE 0.9% 1,000 ML IVB ONE (07:30)
[2021-08-27 07:49] LABS: Hemoglobin 11.3 g/dL (13.5-17.5)
[2021-08-27 07:51] LABS: Hematocrit 35.3 % (41.0-53.0); Mean Corpuscular Hemoglobin 25.7 pg (28.0-32.0); Mean Corpuscular Volume 80.3 fL (80.0-100.0); Red Cell Distribution Width 16.4 % (11.8-14.3); White Blood Cell 11.7 10^3/uL (4.4-10.8)
[2021-08-27 07:54] LABS: Band Neutrophils % (manual) 0; Basophils % (manual) 0 (0.0-2.0); Myelocytes % 0; Promyelocytes % 0
[2021-08-27 07:55] LABS: Blast Cells 0; Reactive Lymphocytes 0
[2021-08-27 08:10] LABS: Magnesium 2.4 mg/dL (1.6-2.6)
[2021-08-27 08:14] LABS: Albumin 3.6 g/dL (3.4-5.0); Calcium 8.9 mg/dL (8.5-10.1)
[2021-08-27] MEDS ORDERED: cefTRIAXone 1GM/50ML D5W 50 ML IV ONE (08:15)
[2021-08-27 08:17] LABS: BUN/Creatinine Ratio 42.9; Bilirubin, Total 1.1 mg/dL (0.2-1.0)
[2021-08-27 08:29] LABS: Potassium 2.8 mmol/L (3.5-5.1)
[2021-08-27] MEDS ORDERED: POTASSIUM EFFERVESENT TAB 25 MEQ PO ONE (08:45)
[2021-08-27 09:35] LABS: Eosinophils % (manual) 1 (0-7); Lymphocytes % (manual) 5 (10.0-50.0); Metamyelocytes % 1; Monocytes % (manual) 9 (0-12)
[2021-08-27] MEDS ORDERED: LEVO500T31 PO (12:14)
[2021-08-27 13:40] VITALS: BP 118/54
== END 2021-08-27 13:45 | disposition home or self-care (01) ==
LOC: ER 05:02
DX: N40.0 Benign prostatic hyperplasia without lower urinary tract symptoms (principal); N39.0 Urinary tract infection, site not specified; R16.2 Hepatomegaly with splenomegaly, not elsewhere classified; N28.89 Other specified disorders of kidney and ureter; I11.0 Hypertensive heart disease with heart failure; I50.9 Heart failure, unspecified; Z90.49 Acquired absence of other specified parts of digestive tract; Z90.89 Acquired absence of other organs; Z79.899 Other long term (current) drug therapy; Z79.1 Long term (current) use of non-steroidal anti-inflammatories (NSAID)
CPT/HCPCS: 36415; 51702; 71045; 74176; 80053; 81001; 83690; 83735; 84443; 85007; 85027; 87086; 93005; 96365; 99285; J0696; J7030; 87088; 87186

== ENCOUNTER 2022-07-25 11:30 | Inpatient (IN) | payer OTHER ==
[~2022-07-25] VITALS: Ht 190.5 cm; Wt 84.9 kg
[~2022-07-25 11:30] MED LIST changes: +CARB-118 PO; -CARB-80 PO; +GABA-1308 PO; -GABA100C9 PO; +IBUP-1454 PO; -IBUP600T27 PO; +LEVO500T31 PO
[2022-07-25] MEDS ORDERED: FUROSEMIDE 40 MG/4 ML VIAL IV ONE (12:45)
[2022-07-25 15:27] LABS: Basophils # (auto) 0.1 10 ^3/uL (0-0.2); Eosinophils # (auto) 0 10 ^3/uL (0-0.8); Hemoglobin 11.3 g/dL (13.5-17.5); Lymphocytes # (auto) 0.9 10 ^3/uL (0.4-5.4)
[2022-07-25 15:29] LABS: Basophils % (auto) 0.7 % (0.0-2.0); Eosinophils % (auto) 0.3 % (0.0-7.0); Hematocrit 36.3 % (41.0-53.0); Lymphocytes % (auto) 7.9 % (10.0-50.0); Mean Corpuscular Hemoglobin 24.3 pg (28.0-32.0); Mean Corpuscular Hgb Conc. 31.1 g/dL (32.0-36.0); Mean Corpuscular Volume 77.9 fL (80.0-100.0); Monocytes # (auto) 0.5 10 ^3/uL (0-1.3); Monocytes % (auto) 4.3 % (0.0-12.0); Neutrophils # (auto) 9.7 10 ^3/uL (1.6-8.6); Neutrophils % (auto) 86.8 % (37.0-80.0); Red Blood Cells 4.66 10^6/uL (4.5-5.90); Red Cell Distribution Width 16.5 % (11.8-14.3); White Blood Cell 11.2 10^3/uL (4.4-10.8)
[2022-07-25 15:44] LABS: Albumin 3.9 g/dL (3.4-5.0); Calcium 8.7 mg/dL (8.5-10.1); Magnesium 2.4 mg/dL (1.6-2.6); Potassium 3.5 mmol/L (3.5-5.1)
[2022-07-25 15:46] LABS: INR 1.05 (0.9-1.15); Partial Thromboplastin Time 29.2 sec (24.6-33.4)
[2022-07-25 15:47] LABS: Bilirubin, Total 0.7 mg/dL (0.2-1.0); Total Protein 6.9 g/dL (6.4-8.2)
[2022-07-25] MEDS ORDERED: DOCUSATE SOD 100 MG CAP PO PRN (21:45)
[2022-07-25] MEDS ORDERED: HYDROcodone-ACET 5/325MG TAB PO PRN (21:45)
[2022-07-25] MEDS ORDERED: ONDANSETRON HCL 4 MG/2 ML VIAL IV PRN (21:45)
[2022-07-25] MEDS ORDERED: ACETAMINOPHEN 325 MG TAB PO PRN (21:45)
[2022-07-25] MEDS: cefTRIAXone 1GM/50ML D5W 50 ML IV SCH (22:58)
[2022-07-25] MEDS: SODIUM CHLOR 0.9% PF (SALINE LOCK) 10ML VIAL/SYR IV SCH (22:59)
[2022-07-25] MEDS: CARBIDOPA W LEVODOPA CR 25/100mg TABLET PO SCH (23:01)
[2022-07-25] MEDS: CARVEDILOL 3.125 MG TAB PO SCH (23:01)
[2022-07-25] MEDS ORDERED: NITROGLYCERIN 0.4 MG SL TAB SL PRN (23:45)
[2022-07-25] MEDS ORDERED: MORPHINE SULFATE INJ 2 MG/ml SYRG IV PRN (23:45)
[2022-07-26] MEDS: SODIUM CHLOR 0.9% PF (SALINE LOCK) 10ML VIAL/SYR IV SCH ×3 (05:49→22:00)
[2022-07-26 06:29] LABS: Basophils # (auto) 0.1 10 ^3/uL (0-0.2); Basophils % (auto) 0.6 % (0.0-2.0); Eosinophils # (auto) 0.1 10 ^3/uL (0-0.8); Eosinophils % (auto) 0.9 % (0.0-7.0); Hematocrit 32.7 % (41.0-53.0); Hemoglobin 10.3 g/dL (13.5-17.5); Lymphocytes # (auto) 0.9 10 ^3/uL (0.4-5.4); Lymphocytes % (auto) 9.5 % (10.0-50.0); Mean Corpuscular Volume 77.5 fL (80.0-100.0); Monocytes # (auto) 0.6 10 ^3/uL (0-1.3); Monocytes % (auto) 6.1 % (0.0-12.0); Neutrophils # (auto) 7.6 10 ^3/uL (1.6-8.6); Neutrophils % (auto) 82.9 % (37.0-80.0); Red Blood Cells 4.22 10^6/uL (4.5-5.90); White Blood Cell 9.1 10^3/uL (4.4-10.8)
[2022-07-26 06:30] LABS: Mean Corpuscular Hemoglobin 24.5 pg (28.0-32.0); Mean Corpuscular Hgb Conc. 31.6 g/dL (32.0-36.0)
[2022-07-26 06:54] LABS: Potassium 3.2 mmol/L (3.5-5.1)
[2022-07-26 07:00] LABS: Albumin 3.2 g/dL (3.4-5.0); BUN/Creatinine Ratio 33.3 (10.0-20.0); Bilirubin, Total 0.8 mg/dL (0.2-1.0); Calcium 8.5 mg/dL (8.5-10.1); Total Protein 6.2 g/dL (6.4-8.2)
[2022-07-26] MEDS: CARVEDILOL 3.125 MG TAB PO SCH ×2 (10:39→22:33)
[2022-07-26] MEDS: ASPirin 81 mg TAB PO SCH (10:39)
[2022-07-26] MEDS: CARBIDOPA W LEVODOPA CR 25/100mg TABLET PO SCH ×2 (10:40→22:32)
[2022-07-26] MEDS: SPIRONOLACTONE 25 MG TAB PO SCH (10:40)
[2022-07-26] MEDS: FUROSEMIDE 40 MG/4 ML VIAL IV SCH ×3 (10:40→22:00)
[2022-07-26] MEDS: PRAMIPEXOLE DIHYDROCHLORIDE MO 0.25 MG TAB PO SCH (18:41)
[2022-07-26] MEDS: cefTRIAXone 1GM/50ML D5W 50 ML IV SCH (22:33)
[2022-07-26] MEDS ORDERED: POTASSIUM CHL 20 Meq TABLET PO ONE (23:15)
[2022-07-26 23:35] VITALS: BP 138/60
[2022-07-27 05:00] VITALS: BP 113/53
[2022-07-27] MEDS: SODIUM CHLOR 0.9% PF (SALINE LOCK) 10ML VIAL/SYR IV SCH ×2 (06:21→14:20)
[2022-07-27 08:35] VITALS: BP 103/46
[2022-07-27] MEDS: CARVEDILOL 3.125 MG TAB PO SCH (10:00)
[2022-07-27] MEDS: CARBIDOPA W LEVODOPA CR 25/100mg TABLET PO SCH (10:52)
[2022-07-27] MEDS: ASPirin 81 mg TAB PO SCH (10:54)
[2022-07-27] MEDS: FUROSEMIDE 40 MG/4 ML VIAL IV SCH (10:55)
[2022-07-27] MEDS: SPIRONOLACTONE 25 MG TAB PO SCH (11:01)
[2022-07-27 13:00] VITALS: BP 110/50
[2022-07-27 14:31] LABS: BUN/Creatinine Ratio 35.4 (10.0-20.0); Calcium 8.8 mg/dL (8.5-10.1); Potassium 3.7 mmol/L (3.5-5.1)
[2022-07-27 16:35] VITALS: BP 122/56
[2022-07-27] MEDS ORDERED: AUG875T PO (16:39)
[2022-07-27] MEDS: PRAMIPEXOLE DIHYDROCHLORIDE MO 0.25 MG TAB PO SCH (17:27)
[2022-07-27 19:09] VITALS: BP 103/46
== END 2022-07-27 19:50 | disposition home health service (06) | DRG 291 ==
LOC: ER 11:30 → TELE 23:36 → TELE-WESTW 07-26 22:46
PROVIDERS: ADMIT Nurse Practitioner Family; ATTEND Internal Medicine
DX: I11.0 Hypertensive heart disease with heart failure (principal); I50.33 Acute on chronic diastolic (congestive) heart failure; J96.01 Acute respiratory failure with hypoxia; E86.0 Dehydration; G20 Parkinson's disease; D72.829 Elevated white blood cell count, unspecified; R60.0 Localized edema; S81.802A Unspecified open wound, left lower leg, initial encounter; X58.XXXA Exposure to other specified factors, initial encounter; I50.9 Heart failure, unspecified; Z88.8 Allergy status to other drugs, medicaments and biological substances; Z83.3 Family history of diabetes mellitus; Z82.49 Family history of ischemic heart disease and other diseases of the circulatory system; Z79.82 Long term (current) use of aspirin; Z90.49 Acquired absence of other specified parts of digestive tract; Z80.1 Family history of malignant neoplasm of trachea, bronchus and lung; Z80.51 Family history of malignant neoplasm of kidney; Y93.89 Activity, other specified; Y92.89 Other specified places as the place of occurrence of the external cause; Y99.8 Other external cause status
CPT/HCPCS: 36415; 71045; 80048; 80053; 83735; 83880; 84484; 85025; 85610; 85730; 93005; 93306; 96365; 96375; G0378; J0696

== ENCOUNTER 2022-12-04 09:57 | Inpatient (IN) | payer OTHER ==
[~2022-12-04] VITALS: Ht 190.5 cm; Wt 99.3 kg
[2022-12-04] VITALS (9 sets, daily range): BP systolic 114–122; BP diastolic 50–56; PULSE 68–77; RESP 14–23; TEMP 97.8–98.9; O2SAT 92–99
[~2022-12-04 09:57] MED LIST changes: +AUG875T PO
[2022-12-04 10:41] LABS: Basophils # (auto) 0.1 10 ^3/uL (0-0.2); Eosinophils # (auto) 0 10 ^3/uL (0-0.8); Lymphocytes # (auto) 0.6 10 ^3/uL (0.4-5.4); Mean Corpuscular Hemoglobin 24.9 pg (28.0-32.0)
[2022-12-04 10:44] LABS: Basophils % (auto) 0.6 % (0.0-2.0); Eosinophils % (auto) 0.6 % (0.0-7.0); Hematocrit 32.9 % (41.0-53.0); Hemoglobin 10.3 g/dL (13.5-17.5); Lymphocytes % (auto) 7.1 % (10.0-50.0); Mean Corpuscular Hgb Conc. 31.4 g/dL (32.0-36.0); Mean Corpuscular Volume 79.3 fL (80.0-100.0); Monocytes # (auto) 0.4 10 ^3/uL (0-1.3); Monocytes % (auto) 4.1 % (0.0-12.0); Neutrophils # (auto) 7.5 10 ^3/uL (1.6-8.6); Neutrophils % (auto) 87.6 % (37.0-80.0); Nucleated Red Blood Cells % 0.1 %; Red Blood Cells 4.15 10^6/uL (4.5-5.90); Red Cell Distribution Width 16.6 % (11.8-14.3); White Blood Cell 8.5 10^3/uL (4.4-10.8)
[2022-12-04] MEDS ORDERED: ASPirin 81 mg TAB PO ONE (10:45)
[2022-12-04 10:50] LABS: Albumin 3.8 g/dL (3.2-4.8); Alkaline Phosphatase 71 U/L (46-116); Aspartate Aminotransferase < 8 U/L (13-40); BUN/Creatinine Ratio 42.9 (10.0-20.0); Bilirubin, Total 0.8 mg/dL (0.2-1.0); Blood Urea Nitrogen 72 mg/dL (9-23); Calcium 8.9 mg/dL (8.5-10.1); Glucose 139 mg/dL (74-106); Total Protein 5.9 g/dL (5.7-8.2)
[2022-12-04 11:19] LABS: Carbon Dioxide > 40 mmol/L (20-30)
[2022-12-04 11:20] LABS: Alanine Aminotransferase < 9 U/L (7-40)
[2022-12-04 11:34] LABS: Anion Gap 4.99999 (5-15); Chloride 98 mmol/L (98-107); Potassium 3.1 mmol/L (3.5-5.1); Sodium 143 mmol/L (136-145)
[2022-12-04 12:31] LABS: Urine Bacteria NONE SEEN /hpf (None Seen); Urine Blood Negative /uL (Negative); Urine Clarity Clear (Clear); Urine Color Colorless (Yellow); Urine Protein, UAD Negative (Negative); Urine Specific Gravity 1.011 (1.001-1.035); Urine Urobilinogen Normal (Negative); Urine WBC 1 /hpf (0 - 3)
[2022-12-04 13:13] LABS: Base Excess 13.3 mmol/L (-2.0-2.0)
[2022-12-04] MEDS ORDERED: NITROGLYCERIN 0.4 MG SL TAB SL PRN ×2 (14:00→16:00)
[2022-12-04] MEDS ORDERED: DOPamine 1600MCG/ML D5W 250 ML IV SCH (14:00)
[2022-12-04] MEDS ORDERED: BUMETANIDE 2.5mg/10ml (0.25 mg/ml) INJ IV ONE (14:00)
[2022-12-04] MEDS ORDERED: MORPHINE SULFATE INJ 2 MG/ml SYRG IV PRN ×2 (14:00→16:00)
[2022-12-04] MEDS ORDERED: fentaNYL CITRATE 100 MCG/2 ML VL ONE (14:06)
[2022-12-04] MEDS ORDERED: MIDAZOLAM HCL 2MG/2ML 2ml VIAL (1mg/ml) ONE (14:06)
[2022-12-04] MEDS ORDERED: VANCOMYCIN HCL 1000 MG VL ONE (14:06)
[2022-12-04] MEDS ORDERED: VANCOMYCIN 1GM/250ML 250 ML IV ONE (14:06)
[2022-12-04] MEDS ORDERED: LIDOCAINE 2%HCL (LOCAL ANESTH.) INJ 20ML MDV ONE (14:07)
[2022-12-04] MEDS ORDERED: ONDANSETRON HCL 4 MG/2 ML VIAL IV PRN (14:15)
[2022-12-04] MEDS ORDERED: HYDROcodone-ACET 5/325MG TAB PO PRN (14:15)
[2022-12-04 14:30] LABS: INR 1.17 (0.9-1.15); Partial Thromboplastin Time 30.3 SEC (24.5-34.5); Prothrombin Time 12.2 sec (9.3-11.8)
[2022-12-04] MEDS ORDERED: acetaZOLAMIDE SODIUM 500 MG VL IV ONE (14:45)
[2022-12-04] MEDS ORDERED: IODIXANOL 320MG/ML 100ML BTL IV ONE (14:53)
[2022-12-04] MEDS ORDERED: LOPERAMIDE HCL 2 MG CAP/TAB PO PRN (17:45)
[2022-12-04] MEDS ORDERED: POTASSIUM CHL 20 Meq TABLET PO ONE (18:00)
[2022-12-04] MEDS ORDERED: PRAMIPEXOLE DIHYDROCHLORIDE MO 0.25 MG TAB PO SCH ×2 (18:00→22:00)
[2022-12-04] MEDS ORDERED: LATA0.008 EACHEYE (18:04)
[2022-12-04] MEDS ORDERED: BET25T PO (18:06)
[2022-12-04] MEDS ORDERED: FUROSEMIDE 40 MG/4 ML VIAL IV ONE (22:30)
[2022-12-04] MEDS: hydrOXYchloroQUINE SULFATE 200 MG TAB PO SCH (23:11)
[2022-12-05] VITALS (13 sets, daily range): BP systolic 95–117; BP diastolic 43–52; PULSE 63–79; RESP 16–22; TEMP 97.4–98.2; O2SAT 93–99
[2022-12-05] MEDS: TAMSULOSIN HYDROCHLORIDE 0.4 MG CAP PO SCH ×2 (00:14→17:27)
[2022-12-05] MEDS: CARBIDOPA W LEVODOPA 25/100mg TABLET PO SCH ×5 (00:15→21:43)
[2022-12-05] MEDS: CARVEDILOL 3.125 MG TAB PO SCH ×3 (00:15→21:43)
[2022-12-05] MEDS: LATANOPROST 0.005 % OPTH(EYE) SOL 2.5ML EACHEYE SCH ×2 (00:16→21:44)
[2022-12-05] MEDS: SACUBITRIL-VALSARTAN 24mg/26mg TAB PO SCH ×3 (00:23→21:43)
[2022-12-05] MEDS: ALBUTEROL SULF 2.5 MG/0.5ML(0.5%) NEB SOLN NEB PRN ×3 (02:05→22:30)
[2022-12-05 06:46] LABS: Chloride 100 mmol/L (98-107); Sodium 144 mmol/L (136-145)
[2022-12-05 06:47] LABS: Calcium 8.8 mg/dL (8.7-10.4)
[2022-12-05 06:52] LABS: BUN/Creatinine Ratio 39.6 (10.0-20.0); Glucose 116 mg/dL (74-106)
[2022-12-05 07:17] LABS: Anion Gap 3.99999 (5-15); Blood Urea Nitrogen 57 mg/dL (9-23)
[2022-12-05 07:19] LABS: Carbon Dioxide > 40 mmol/L (20-30)
[2022-12-05] MEDS: ACETAMINOPHEN 325 MG TAB PO PRN ×2 (09:47→18:10)
[2022-12-05] MEDS: POTASSIUM CHL 20 Meq TABLET PO SCH (09:49)
[2022-12-05] MEDS: FAMOTIDINE 20 MG TAB PO SCH (09:54)
[2022-12-05] MEDS: ENOXAPARIN SOD 40 MG/0.4 ML SYRINGE SC SCH (11:31)
[2022-12-05] MEDS: hydrOXYchloroQUINE SULFATE 200 MG TAB PO SCH ×2 (11:32→21:43)
[2022-12-05] MEDS: PRAMIPEXOLE DIHYDROCHLORIDE MO 0.25 MG TAB PO SCH ×3 (12:23→23:18)
[2022-12-05] MEDS ORDERED: FUROSEMIDE 40 MG/4 ML VIAL IV ONE (13:30)
[2022-12-05] MEDS ORDERED: POTASSIUM CHL 20 Meq TABLET PO ONE (13:45)
[2022-12-05] MEDS ORDERED: acetaZOLAMIDE SODIUM 500 MG VL IV ONE (16:15)
[2022-12-05] MEDS: FUROSEMIDE 40 MG/4 ML VIAL IV SCH (17:27)
[2022-12-05] MEDS: MELATONIN 5 MG TAB PO SCH (23:19)
[2022-12-06] VITALS (12 sets, daily range): BP systolic 86–104; BP diastolic 32–56; PULSE 51–85; RESP 14–24; TEMP 97.5–98.4; O2SAT 93–99
[2022-12-06] MEDS: CARBIDOPA W LEVODOPA 25/100mg TABLET PO SCH ×6 (02:13→21:34)
[2022-12-06] MEDS: ALBUTEROL SULF 2.5 MG/0.5ML(0.5%) NEB SOLN NEB PRN (02:28)
[2022-12-06] MEDS: PRAMIPEXOLE DIHYDROCHLORIDE MO 0.25 MG TAB PO SCH ×4 (05:42→23:38)
[2022-12-06] MEDS: FUROSEMIDE 40 MG/4 ML VIAL IV SCH ×2 (05:43→18:00)
[2022-12-06 05:46] LABS: Basophils # (auto) 0 10 ^3/uL (0-0.2); Basophils % (auto) 0.5 % (0.0-2.0); Eosinophils # (auto) 0.1 10 ^3/uL (0-0.8); Hemoglobin 9.8 g/dL (13.5-17.5); Lymphocytes # (auto) 0.6 10 ^3/uL (0.4-5.4); Mean Corpuscular Hemoglobin 24.7 pg (28.0-32.0); Mean Corpuscular Hgb Conc. 30.7 g/dL (32.0-36.0); Monocytes # (auto) 0.4 10 ^3/uL (0-1.3); Nucleated Red Blood Cells % 0.1 %; Red Cell Distribution Width 16.6 % (11.8-14.3)
[2022-12-06 05:48] LABS: Eosinophils % (auto) 0.7 % (0.0-7.0); Hematocrit 31.9 % (41.0-53.0); Lymphocytes % (auto) 6.8 % (10.0-50.0); Mean Corpuscular Volume 80.2 fL (80.0-100.0); Monocytes % (auto) 4.4 % (0.0-12.0); Neutrophils # (auto) 7.7 10 ^3/uL (1.6-8.6); Neutrophils % (auto) 87.6 % (37.0-80.0); Red Blood Cells 3.98 10^6/uL (4.5-5.90); White Blood Cell 8.8 10^3/uL (4.4-10.8)
[2022-12-06 05:55] LABS: Chloride 100 mmol/L (98-107); Potassium 3.3 mmol/L (3.5-5.1); Sodium 143 mmol/L (136-145)
[2022-12-06 05:56] LABS: Calcium 8.5 mg/dL (8.7-10.4)
[2022-12-06 06:00] LABS: Glucose 102 mg/dL (74-106)
[2022-12-06 06:01] LABS: BUN/Creatinine Ratio 39.6 (10.0-20.0); Blood Urea Nitrogen 55 mg/dL (9-23); Magnesium 2.1 mg/dL (1.6-2.6)
[2022-12-06 06:10] LABS: Anion Gap 2.99999 (5-15)
[2022-12-06 06:12] LABS: Carbon Dioxide > 40 mmol/L (20-30)
[2022-12-06] MEDS ORDERED: TEMA30CA PO (09:23)
[2022-12-06] MEDS: hydrOXYchloroQUINE SULFATE 200 MG TAB PO SCH ×2 (09:25→21:35)
[2022-12-06] MEDS: ENOXAPARIN SOD 40 MG/0.4 ML SYRINGE SC SCH (09:26)
[2022-12-06] MEDS: POTASSIUM CHL 20 Meq TABLET PO SCH ×2 (09:26→21:34)
[2022-12-06] MEDS: FAMOTIDINE 20 MG TAB PO SCH (09:26)
[2022-12-06] MEDS: CARVEDILOL 3.125 MG TAB PO SCH ×2 (09:29→21:33)
[2022-12-06] MEDS: SACUBITRIL-VALSARTAN 24mg/26mg TAB PO SCH ×2 (09:31→21:33)
[2022-12-06] MEDS ORDERED: SODIUM CHLORIDE 0.9% 200 ML IV ONE (13:15)
[2022-12-06] MEDS: ACETAMINOPHEN 325 MG TAB PO PRN (14:15)
[2022-12-06] MEDS ORDERED: TEMAZEPAM 15 MG CAP PO PRN (17:45)
[2022-12-06] MEDS: TAMSULOSIN HYDROCHLORIDE 0.4 MG CAP PO SCH (18:00)
[2022-12-06] MEDS: MELATONIN 5 MG TAB PO SCH (21:36)
[2022-12-06] MEDS: LATANOPROST 0.005 % OPTH(EYE) SOL 2.5ML EACHEYE SCH (21:44)
[2022-12-07] VITALS (38 sets, daily range): BP systolic 82–131; BP diastolic 39–61; PULSE 71–102; RESP 12–31; TEMP 95.5–99.5; O2SAT 85–98
[2022-12-07] MEDS: CARBIDOPA W LEVODOPA 25/100mg TABLET PO SCH ×6 (02:17→22:10)
[2022-12-07] MEDS: FUROSEMIDE 40 MG/4 ML VIAL IV SCH ×2 (05:18→18:00)
[2022-12-07] MEDS: PRAMIPEXOLE DIHYDROCHLORIDE MO 0.25 MG TAB PO SCH ×3 (05:54→18:01)
[2022-12-07 06:15] LABS: Basophils # (auto) 0 10 ^3/uL (0-0.2); Basophils % (auto) 0.4 % (0.0-2.0); Eosinophils # (auto) 0.1 10 ^3/uL (0-0.8); Lymphocytes # (auto) 0.6 10 ^3/uL (0.4-5.4); Mean Corpuscular Hgb Conc. 30.9 g/dL (32.0-36.0); Monocytes # (auto) 0.4 10 ^3/uL (0-1.3); Red Blood Cells 4.06 10^6/uL (4.5-5.90); White Blood Cell 9.2 10^3/uL (4.4-10.8)
[2022-12-07 06:18] LABS: Eosinophils % (auto) 0.6 % (0.0-7.0); Hematocrit 32.8 % (41.0-53.0); Hemoglobin 10.1 g/dL (13.5-17.5); Lymphocytes % (auto) 6.1 % (10.0-50.0); Mean Corpuscular Volume 80.8 fL (80.0-100.0); Monocytes % (auto) 4.1 % (0.0-12.0); Neutrophils # (auto) 8.2 10 ^3/uL (1.6-8.6); Neutrophils % (auto) 88.8 % (37.0-80.0); Nucleated Red Blood Cells % 0.1 %; Red Cell Distribution Width 16.6 % (11.8-14.3)
[2022-12-07 06:37] LABS: Alkaline Phosphatase 67 U/L (46-116); Blood Urea Nitrogen 54 mg/dL (9-23); Calcium 8.7 mg/dL (8.7-10.4); Chloride 99 mmol/L (98-107); Glucose 101 mg/dL (74-106); Potassium 4.3 mmol/L (3.5-5.1); Sodium 143 mmol/L (136-145)
[2022-12-07 06:38] LABS: Alanine Aminotransferase < 9 U/L (7-40); Albumin 3.5 g/dL (3.2-4.8); Anion Gap 3.99999 (5-15); Aspartate Aminotransferase < 8 U/L (13-40); Bilirubin, Total 0.6 mg/dL (0.2-1.0); Total Protein 5.7 g/dL (5.7-8.2)
[2022-12-07 06:41] LABS: Carbon Dioxide > 40 mmol/L (20-30)
[2022-12-07] MEDS: ALBUTEROL SULF 2.5 MG/0.5ML(0.5%) NEB SOLN NEB PRN (07:27)
[2022-12-07] MEDS: CARVEDILOL 3.125 MG TAB PO SCH ×2 (09:34→22:00)
[2022-12-07] MEDS: hydrOXYchloroQUINE SULFATE 200 MG TAB PO SCH ×2 (09:36→22:10)
[2022-12-07] MEDS: FAMOTIDINE 20 MG TAB PO SCH (09:38)
[2022-12-07] MEDS: POTASSIUM CHL 20 Meq TABLET PO SCH ×2 (09:38→22:11)
[2022-12-07] MEDS: SACUBITRIL-VALSARTAN 24mg/26mg TAB PO SCH ×2 (09:42→22:00)
[2022-12-07] MEDS: ACETAMINOPHEN 325 MG TAB PO PRN (11:04)
[2022-12-07] MEDS ORDERED: LACTULOSE 20Gm/30ML SOLN PO PRN (13:30)
[2022-12-07] MEDS ORDERED: LIDOCAINE 2%HCL (LOCAL ANESTH.) INJ 20ML MDV ONE (14:03)
[2022-12-07] MEDS ORDERED: IODIXANOL 320MG/ML 100ML BTL IV ONE ×2 (14:03→15:11)
[2022-12-07] MEDS ORDERED: fentaNYL CITRATE 100 MCG/2 ML VL ONE (14:25)
[2022-12-07] MEDS ORDERED: MIDAZOLAM HCL 2MG/2ML 2ml VIAL (1mg/ml) ONE (14:25)
[2022-12-07] MEDS ORDERED: ANGIOMAX 250 MG VIAL IV ONE (14:52)
[2022-12-07] MEDS ORDERED: SODIUM CHL 0.9% 50 ML ONE (14:52)
[2022-12-07] MEDS ORDERED: CLOPIDOGREL 300 MG TAB ONE (15:16)
[2022-12-07] MEDS: TAMSULOSIN HYDROCHLORIDE 0.4 MG CAP PO SCH (17:59)
[2022-12-07] MEDS: NOREPINEPHRINE 8 MG/250ML KIT 250 ML IV SCH (18:45)
[2022-12-07 21:13] LABS: Base Excess 6.7 mmol/L (-2.0-2.0)
[2022-12-07] MEDS: MELATONIN 5 MG TAB PO SCH (22:11)
[2022-12-08] VITALS (91 sets, daily range): BP systolic 82–149; BP diastolic 32–76; PULSE 71–100; RESP 10–33; TEMP 97.7–100.1; O2SAT 78–100
[2022-12-08] MEDS: PRAMIPEXOLE DIHYDROCHLORIDE MO 0.25 MG TAB PO SCH ×4 (01:08→17:33)
[2022-12-08] MEDS: CARBIDOPA W LEVODOPA 25/100mg TABLET PO SCH ×5 (01:08→17:34)
[2022-12-08] MEDS: LATANOPROST 0.005 % OPTH(EYE) SOL 2.5ML EACHEYE SCH ×2 (01:08→22:00)
[2022-12-08 04:50] LABS: Eosinophils # (auto) 0.1 10 ^3/uL (0-0.8); Eosinophils % (auto) 0.8 % (0.0-7.0); Hemoglobin 9.7 g/dL (13.5-17.5); Lymphocytes # (auto) 0.7 10 ^3/uL (0.4-5.4); Monocytes # (auto) 0.5 10 ^3/uL (0-1.3); Monocytes % (auto) 5.9 % (0.0-12.0); White Blood Cell 8.8 10^3/uL (4.4-10.8)
[2022-12-08 04:52] LABS: Albumin 3.5 g/dL (3.2-4.8); Alkaline Phosphatase 61 U/L (46-116); Anion Gap 5 (5-15); Aspartate Aminotransferase 15 U/L (13-40); BUN/Creatinine Ratio 33.1 (10.0-20.0); Basophils # (auto) 0.1 10 ^3/uL (0-0.2); Basophils % (auto) 0.6 % (0.0-2.0); Bilirubin, Total 0.9 mg/dL (0.2-1.0); Blood Urea Nitrogen 48 mg/dL (9-23); Calcium 8.7 mg/dL (8.5-10.1); Carbon Dioxide 36 mmol/L (20-30); Chloride 103 mmol/L (98-107); Glucose 113 mg/dL (74-106); Hematocrit 31.1 % (41.0-53.0); Lymphocytes % (auto) 8.2 % (10.0-50.0); Mean Corpuscular Hemoglobin 25.1 pg (28.0-32.0); Mean Corpuscular Hgb Conc. 31.2 g/dL (32.0-36.0); Mean Corpuscular Volume 80.4 fL (80.0-100.0); Neutrophils # (auto) 7.4 10 ^3/uL (1.6-8.6); Neutrophils % (auto) 84.5 % (37.0-80.0); Nucleated Red Blood Cells % 0.1 %; Potassium 4.3 mmol/L (3.5-5.1); Red Blood Cells 3.87 10^6/uL (4.5-5.90); Red Cell Distribution Width 16.5 % (11.8-14.3); Sodium 144 mmol/L (136-145); Total Protein 5.7 g/dL (5.7-8.2)
[2022-12-08 04:59] LABS: Alanine Aminotransferase < 9 U/L (7-40)
[2022-12-08] MEDS: FUROSEMIDE 40 MG/4 ML VIAL IV SCH ×2 (05:36→17:34)
[2022-12-08] MEDS: SOD CHL 0.45% 1,000 ML IV SCH ×2 (05:50→10:46)
[2022-12-08] MEDS: SACUBITRIL-VALSARTAN 24mg/26mg TAB PO SCH (10:00)
[2022-12-08] MEDS: CARVEDILOL 3.125 MG TAB PO SCH (10:00)
[2022-12-08 10:12] LABS: Base Excess 9.5 mmol/L (-2.0-2.0)
[2022-12-08] MEDS: ASPirin 81 mg TAB PO SCH (10:52)
[2022-12-08] MEDS: AMIODARONE HCL 200 MG TAB PO SCH (10:54)
[2022-12-08] MEDS: hydrOXYchloroQUINE SULFATE 200 MG TAB PO SCH (10:55)
[2022-12-08] MEDS: POTASSIUM CHL 20 Meq TABLET PO SCH (10:55)
[2022-12-08] MEDS: FAMOTIDINE 20 MG TAB PO SCH (10:55)
[2022-12-08] MEDS: CLOPIDOGREL BISULFATE 75 MG TAB PO SCH (10:55)
[2022-12-08] MEDS: ENOXAPARIN SOD 40 MG/0.4 ML SYRINGE SC SCH (10:56)
[2022-12-08] MEDS: ACETAMINOPHEN 325 MG TAB PO PRN (12:52)
[2022-12-08] MEDS: HALOPERIDOL 1 MG TAB PO PRN (17:33)
[2022-12-08] MEDS: TAMSULOSIN HYDROCHLORIDE 0.4 MG CAP PO SCH (17:33)
[2022-12-08] MEDS: NOREPINEPHRINE 8 MG/250ML KIT 250 ML IV SCH (17:35)
[2022-12-08] MEDS: Ensure Enlive Strawberry 8oz Bottle PO SCH (17:36)
[2022-12-08] MEDS: MORPHINE SULFATE INJ 2 MG/ml SYRG IV PRN (20:07)
[2022-12-08] MEDS: MELATONIN 5 MG TAB PO SCH (22:00)
[2022-12-09] VITALS (94 sets, daily range): BP systolic 81–149; BP diastolic 32–96; PULSE 74–100; RESP 11–31; TEMP 98–101.1; O2SAT 87–100
[2022-12-09] MEDS: hydrOXYchloroQUINE SULFATE 200 MG TAB PO SCH ×2 (02:31→10:32)
[2022-12-09] MEDS: AMIODARONE HCL 200 MG TAB PO SCH ×3 (02:31→23:44)
[2022-12-09] MEDS: CARBIDOPA W LEVODOPA 25/100mg TABLET PO SCH ×5 (02:32→23:43)
[2022-12-09] MEDS: POTASSIUM CHL 20 Meq TABLET PO SCH ×3 (02:33→22:00)
[2022-12-09] MEDS: ACETAMINOPHEN 325 MG TAB PO PRN ×2 (02:34→21:34)
[2022-12-09] MEDS: CEPHALEXIN 250 MG CAP PO SCH ×3 (02:40→23:44)
[2022-12-09] MEDS: PRAMIPEXOLE DIHYDROCHLORIDE MO 0.25 MG TAB PO SCH ×4 (04:00→23:44)
[2022-12-09 04:28] LABS: Basophils # (auto) 0 10 ^3/uL (0-0.2); Eosinophils # (auto) 0 10 ^3/uL (0-0.8); Hemoglobin 9.4 g/dL (13.5-17.5); Lymphocytes # (auto) 0.2 10 ^3/uL (0.4-5.4); Mean Corpuscular Hemoglobin 25.2 pg (28.0-32.0); Mean Corpuscular Hgb Conc. 30.8 g/dL (32.0-36.0); Red Cell Distribution Width 16.5 % (11.8-14.3); White Blood Cell 8.4 10^3/uL (4.4-10.8)
[2022-12-09 04:30] LABS: Basophils % (auto) 0.3 % (0.0-2.0); Hematocrit 30.5 % (41.0-53.0); Lymphocytes % (auto) 2.2 % (10.0-50.0); Monocytes # (auto) 0.4 10 ^3/uL (0-1.3); Monocytes % (auto) 4.5 % (0.0-12.0); Neutrophils # (auto) 7.8 10 ^3/uL (1.6-8.6); Red Blood Cells 3.72 10^6/uL (4.5-5.90)
[2022-12-09 04:38] LABS: Chloride 99 mmol/L (98-107); Potassium 4.8 mmol/L (3.5-5.1); Sodium 138 mmol/L (136-145)
[2022-12-09 04:39] LABS: Anion Gap 2 (5-15); Calcium 8.6 mg/dL (8.7-10.4); Carbon Dioxide 37 mmol/L (20-30)
[2022-12-09 04:44] LABS: BUN/Creatinine Ratio 32.2 (10.0-20.0); Blood Urea Nitrogen 57 mg/dL (9-23); Glucose 164 mg/dL (74-106)
[2022-12-09] MEDS: FUROSEMIDE 40 MG/4 ML VIAL IV SCH (06:43)
[2022-12-09] MEDS: Ensure Enlive Strawberry 8oz Bottle PO SCH ×2 (08:00→12:00)
[2022-12-09 08:53] LABS: INR 1.14 (0.9-1.15); Partial Thromboplastin Time 31.9 SEC (24.5-34.5); Prothrombin Time 11.9 sec (9.3-11.8)
[2022-12-09] MEDS: ASPirin 81 mg TAB PO SCH (10:30)
[2022-12-09] MEDS: CLOPIDOGREL BISULFATE 75 MG TAB PO SCH (10:32)
[2022-12-09] MEDS: FAMOTIDINE 20 MG TAB PO SCH (10:32)
[2022-12-09] MEDS: ENOXAPARIN SOD 40 MG/0.4 ML SYRINGE SC SCH (10:33)
[2022-12-09] MEDS: HALOPERIDOL 1 MG TAB PO PRN (10:33)
[2022-12-09 10:59] LABS: Base Excess 6.4 mmol/L (-2.0-2.0)
[2022-12-09] MEDS: ALBUTEROL SULF 2.5 MG/0.5ML(0.5%) NEB SOLN NEB PRN (11:12)
[2022-12-09] MEDS: BUMETANIDE 2.5mg/10ml (0.25 mg/ml) INJ IV SCH (11:19)
[2022-12-09] MEDS: SOD CHL 0.45% 1,000 ML IV SCH (12:00)
[2022-12-09] MEDS: MILRINONE 20MG/100ML 100 ML IV SCH ×2 (12:42→20:33)
[2022-12-09 12:43] LABS: Base Excess 6.3 mmol/L (-2.0-2.0)
[2022-12-09] MEDS ORDERED: LIDOCAINE 1% (LOCAL ANESTH.) PF 5ml SDV ID ONE (13:45)
[2022-12-09 17:44] LABS: Base Excess 8.4 mmol/L (-2.0-2.0)
[2022-12-09] MEDS: NOREPINEPHRINE 8 MG/250ML KIT 250 ML IV SCH ×2 (17:45→21:35)
[2022-12-09] MEDS ORDERED: MORPHINE SULFATE INJ 2 MG/ml SYRG IV PRN (21:00)
[2022-12-09] MEDS: MELATONIN 5 MG TAB PO SCH (22:00)
[2022-12-09] MEDS: SODIUM CHLOR 0.9% PF (SALINE LOCK) 10ML VIAL/SYR IV SCH (23:43)
[2022-12-10] VITALS (85 sets, daily range): BP systolic 65–121; BP diastolic 24–61; PULSE 79–110; RESP 10–34; TEMP 97.1–99; O2SAT 71–100
[2022-12-10] MEDS: LATANOPROST 0.005 % OPTH(EYE) SOL 2.5ML EACHEYE SCH ×2 (00:01→22:00)
[2022-12-10] MEDS: MELATONIN 5 MG TAB PO SCH ×2 (01:18→22:00)
[2022-12-10] MEDS: CARBIDOPA W LEVODOPA 25/100mg TABLET PO SCH ×5 (02:00→22:00)
[2022-12-10] MEDS: SOD CHL 0.45% 1,000 ML IV SCH ×2 (02:15→15:35)
[2022-12-10] MEDS: MORPHINE SULFATE INJ 2 MG/ml SYRG IV PRN ×3 (02:52→13:20)
[2022-12-10] MEDS: PRAMIPEXOLE DIHYDROCHLORIDE MO 0.25 MG TAB PO SCH ×4 (04:15→22:15)
[2022-12-10] MEDS: MILRINONE 20MG/100ML 100 ML IV SCH ×3 (05:42→22:37)
[2022-12-10 06:07] LABS: Lymphocytes # (auto) 0.5 10 ^3/uL (0.4-5.4); Neutrophils % (auto) 87.4 % (37.0-80.0)
[2022-12-10 06:08] LABS: Albumin 3.5 g/dL (3.2-4.8); Alkaline Phosphatase 63 U/L (46-116); Anion Gap 6 (5-15); Aspartate Aminotransferase 15 U/L (13-40); BUN/Creatinine Ratio 34.6 (10.0-20.0); Blood Urea Nitrogen 62 mg/dL (9-23); Calcium 8.7 mg/dL (8.5-10.1); Carbon Dioxide 33 mmol/L (20-30); Chloride 101 mmol/L (98-107); Glucose 140 mg/dL (74-106); Potassium 4.8 mmol/L (3.5-5.1); Sodium 140 mmol/L (136-145)
[2022-12-10 06:09] LABS: Basophils # (auto) 0 10 ^3/uL (0-0.2); Basophils % (auto) 0.4 % (0.0-2.0); Eosinophils # (auto) 0 10 ^3/uL (0-0.8); Eosinophils % (auto) 0.4 % (0.0-7.0); Hematocrit 30.1 % (41.0-53.0); Hemoglobin 9.2 g/dL (13.5-17.5); Lymphocytes % (auto) 4.8 % (10.0-50.0); Mean Corpuscular Hemoglobin 24.8 pg (28.0-32.0); Mean Corpuscular Hgb Conc. 30.7 g/dL (32.0-36.0); Mean Corpuscular Volume 80.6 fL (80.0-100.0); Monocytes # (auto) 0.8 10 ^3/uL (0-1.3); Neutrophils # (auto) 9.7 10 ^3/uL (1.6-8.6); Red Blood Cells 3.74 10^6/uL (4.5-5.90); Red Cell Distribution Width 16.6 % (11.8-14.3); Total Protein 5.7 g/dL (5.7-8.2); White Blood Cell 11.1 10^3/uL (4.4-10.8)
[2022-12-10 06:18] LABS: Alanine Aminotransferase < 9 U/L (7-40)
[2022-12-10] MEDS: NOREPINEPHRINE 8 MG/250ML KIT 250 ML IV SCH (06:32)
[2022-12-10] MEDS: Ensure Enlive Strawberry 8oz Bottle PO SCH ×3 (08:00→18:00)
[2022-12-10] MEDS: hydrOXYchloroQUINE SULFATE 200 MG TAB PO SCH ×3 (10:00→22:00)
[2022-12-10] MEDS: BUMETANIDE 2.5mg/10ml (0.25 mg/ml) INJ IV SCH (10:00)
[2022-12-10] MEDS: POTASSIUM CHL 20 Meq TABLET PO SCH ×2 (10:00→22:00)
[2022-12-10] MEDS: ASPirin 81 mg TAB PO SCH (10:00)
[2022-12-10] MEDS: SODIUM CHLOR 0.9% PF (SALINE LOCK) 10ML VIAL/SYR IV SCH ×2 (10:00→22:45)
[2022-12-10] MEDS: FAMOTIDINE 20 MG TAB PO SCH (10:00)
[2022-12-10] MEDS: CEPHALEXIN 250 MG CAP PO SCH ×2 (10:00→22:00)
[2022-12-10] MEDS: CLOPIDOGREL BISULFATE 75 MG TAB PO SCH (10:00)
[2022-12-10] MEDS: AMIODARONE HCL 200 MG TAB PO SCH ×2 (10:00→22:00)
[2022-12-10] MEDS: ENOXAPARIN SOD 40 MG/0.4 ML SYRINGE SC SCH (10:00)
[2022-12-10] MEDS ORDERED: MORPHINE SULFATE INJ 2 MG/ml SYRG IV PRN (10:15)
[2022-12-10] MEDS: ACETAMINOPHEN 325 MG TAB PO PRN (13:49)
[2022-12-10] MEDS: LORazepam 2MG/ML-1ML VIAL IV PRN (15:15)
[2022-12-10] MEDS: TAMSULOSIN HYDROCHLORIDE 0.4 MG CAP PO SCH (18:00)
[2022-12-10] MEDS: HYDROmorphone HCL 2 MG/ML VL/or syr IV PRN ×2 (18:32→20:55)
[2022-12-11] VITALS (81 sets, daily range): BP systolic 43–90; BP diastolic 13–41; PULSE 65–102; RESP 10–29; TEMP 96.7–98.7; O2SAT 81–99
[2022-12-11] MEDS: HYDROmorphone HCL 2 MG/ML VL/or syr IV PRN ×6 (01:27→19:19)
[2022-12-11] MEDS: CARBIDOPA W LEVODOPA 25/100mg TABLET PO SCH ×5 (02:00→18:00)
[2022-12-11] MEDS: PRAMIPEXOLE DIHYDROCHLORIDE MO 0.25 MG TAB PO SCH ×3 (04:15→15:59)
[2022-12-11 04:21] LABS: Basophils # (auto) 0 10 ^3/uL (0-0.2); Eosinophils # (auto) 0 10 ^3/uL (0-0.8); Eosinophils % (auto) 0.2 % (0.0-7.0); Lymphocytes # (auto) 0.3 10 ^3/uL (0.4-5.4)
[2022-12-11 04:23] LABS: Basophils % (auto) 0.2 % (0.0-2.0); Hematocrit 28.1 % (41.0-53.0); Hemoglobin 8.7 g/dL (13.5-17.5); Lymphocytes % (auto) 4.7 % (10.0-50.0); Mean Corpuscular Hemoglobin 25.1 pg (28.0-32.0); Monocytes # (auto) 0.4 10 ^3/uL (0-1.3); Monocytes % (auto) 6.7 % (0.0-12.0); Neutrophils # (auto) 5.9 10 ^3/uL (1.6-8.6); Neutrophils % (auto) 88.2 % (37.0-80.0); Red Blood Cells 3.47 10^6/uL (4.5-5.90); Red Cell Distribution Width 16.9 % (11.8-14.3); White Blood Cell 6.7 10^3/uL (4.4-10.8)
[2022-12-11] MEDS: SOD CHL 0.45% 1,000 ML IV SCH ×2 (04:55→15:59)
[2022-12-11] MEDS: MILRINONE 20MG/100ML 100 ML IV SCH (07:35)
[2022-12-11] MEDS: Ensure Enlive Strawberry 8oz Bottle PO SCH ×3 (08:00→15:59)
[2022-12-11] MEDS: BUMETANIDE 2.5mg/10ml (0.25 mg/ml) INJ IV SCH (10:00)
[2022-12-11] MEDS: SODIUM CHLOR 0.9% PF (SALINE LOCK) 10ML VIAL/SYR IV SCH (10:00)
[2022-12-11] MEDS: LORazepam 2MG/ML-1ML VIAL IV PRN ×4 (11:34→19:19)
== END 2022-12-11 20:58 | DRG 242 ==
LOC: ER 09:57 → TELE 13:57 → TELE-WESTW 17:32 → ICU WEST 12-07 18:12
PROVIDERS: ADMIT Hospitalist; ATTEND Family Medicine
PROC: 0JH606Z Insertion of Pacemaker, Dual Chamber into Chest Subcutaneous Tissue and Fascia, Open Approach (ICD-10-PCS; principal; 2022-12-04)
PROC: 02H63JZ Insertion of Pacemaker Lead into Right Atrium, Percutaneous Approach (ICD-10-PCS; 2022-12-04)
PROC: B5171ZZ Fluoroscopy of Left Subclavian Vein using Low Osmolar Contrast (ICD-10-PCS; 2022-12-04)
PROC: 02HK3JZ Insertion of Pacemaker Lead into Right Ventricle, Percutaneous Approach (ICD-10-PCS; 2022-12-04)
PROC: 02713EZ Dilation of Coronary Artery, Two Arteries with Two Intraluminal Devices, Percutaneous Approach (ICD-10-PCS; 2022-12-07)
PROC: B2111ZZ Fluoroscopy of Multiple Coronary Arteries using Low Osmolar Contrast (ICD-10-PCS; 2022-12-07)
PROC: 4A023N8 Measurement of Cardiac Sampling and Pressure, Bilateral, Percutaneous Approach (ICD-10-PCS; 2022-12-07)
PROC: 5A09357 Assistance with Respiratory Ventilation, Less than 24 Consecutive Hours, Continuous Positive Airway Pressure (ICD-10-PCS; 2022-12-07)
PROC: B240ZZ3 Ultrasonography of Single Coronary Artery, Intravascular (ICD-10-PCS; 2022-12-07)
PROC: 4A033BC Measurement of Arterial Pressure, Coronary, Percutaneous Approach (ICD-10-PCS; 2022-12-07)
PROC: 5A09357 Assistance with Respiratory Ventilation, Less than 24 Consecutive Hours, Continuous Positive Airway Pressure (ICD-10-PCS; 2022-12-08)
PROC: 5A09357 Assistance with Respiratory Ventilation, Less than 24 Consecutive Hours, Continuous Positive Airway Pressure (ICD-10-PCS; 2022-12-09)
PROC: 02HV33Z Insertion of Infusion Device into Superior Vena Cava, Percutaneous Approach (ICD-10-PCS; 2022-12-09)
PROC: 5A09357 Assistance with Respiratory Ventilation, Less than 24 Consecutive Hours, Continuous Positive Airway Pressure (ICD-10-PCS; 2022-12-10)
DX: I25.10 Atherosclerotic heart disease of native coronary artery without angina pectoris (principal); I50.43 Acute on chronic combined systolic (congestive) and diastolic (congestive) heart failure; J96.01 Acute respiratory failure with hypoxia; I13.0 Hypertensive heart and chronic kidney disease with heart failure and stage 1 through stage 4 chronic kidney disease, or unspecified chronic kidney disease; N17.9 Acute kidney failure, unspecified; J98.11 Atelectasis; E87.4 Mixed disorder of acid-base balance; I49.5 Sick sinus syndrome; N18.31 Chronic kidney disease, stage 3a; E87.6 Hypokalemia; D64.9 Anemia, unspecified; G20 Parkinson's disease; I27.20 Pulmonary hypertension, unspecified; G47.00 Insomnia, unspecified; K52.9 Noninfective gastroenteritis and colitis, unspecified; I08.1 Rheumatic disorders of both mitral and tricuspid valves; I87.2 Venous insufficiency (chronic) (peripheral); Z53.20 Procedure and treatment not carried out because of patient's decision for unspecified reasons; G62.9 Polyneuropathy, unspecified; N20.0 Calculus of kidney; Z66 Do not resuscitate; Z99.81 Dependence on supplemental oxygen; Z88.1 Allergy status to other antibiotic agents; Z79.899 Other long term (current) drug therapy; Z87.442 Personal history of urinary calculi; Z82.49 Family history of ischemic heart disease and other diseases of the circulatory system; Z63.4 Disappearance and death of family member; Z83.3 Family history of diabetes mellitus; Z80.1 Family history of malignant neoplasm of trachea, bronchus and lung; Z80.51 Family history of malignant neoplasm of kidney; Z80.9 Family history of malignant neoplasm, unspecified; Z95.5 Presence of coronary angioplasty implant and graft; Z51.5 Encounter for palliative care; I95.1 Orthostatic hypotension
CPT/HCPCS: 33208; 36415; 36569; 36600; 71045; 74176; 76604; 80048; 80053; 81001; 82270; 82805; 83605; 83735; 83880; 84484; 85025; 85610; 85730; 86850; 86900; 86901; 87040; 87086; 92928; 92978; 93005; 93306; 93460; 93571; 93970; 94640; 94660; 96374; 99152; C1874; C1887; G0378; J2250; Q9967